=== PATIENT | male | born 1970 | race Two or more races ===

== ENCOUNTER 2018-01-02 21:24 | Emergency (ER) | payer BC, MEDICAID ==
[2018-01-02 22:46] VITALS: BP 138/65
[2018-01-02] MEDS ORDERED: Ketorolac 30 MG/ML SDV IM ONE (23:33)
--- NOTE | 2018-01-02 23:39 | EDM.PDOC ---
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 Did miss one day of work last week No nausea or vomiting with the headache No photophobia, States he is also developing a migraine now sinus/migraine Pain Score (Numeric/FACES): 10 - Related Data Allergies Allergy/AdvReac Type Severity Reaction Status Date / Time No Known Allergies Allergy Verified 01/02/18 22:51 Home Meds: Home Meds Cephalexin 500 mg PO TID #20 capsule 01/02/18 [Rx] metFORMIN HCl [Metformin HCl ER] 500 mg PO BID 01/02/18 [History] traMADol [Ultram] 50 mg PO Q4H PRN #15 tab 01/02/18 [Rx] Past Medical History HEENT History: Reports: Impaired Vision Genitourinary History: Reports: Renal Calculus Neurological History: Reports: Migraines Psychiatric History: Reports: ADD, Depression, Suicidal Ideation Endocrine/Metabolic History: Reports: Diabetes, Type II Dermatologic History: Reports: Eczema - Infectious Disease History Infectious Disease History: Reports: Chicken Pox, Measles - Past Surgical History Musculoskeletal Surgical History: Reports: Other (See Below) Other Musculoskeletal Surgeries/Procedures:: SKIN GRAFT Social & Family History - Tobacco Use Smoking Status *Q: Current Every Day Smoker Years of Tobacco use: 1 Packs/Tins Daily: 0.5 - Caffeine Use Caffeine Use: Reports: Coffee, Energy Drinks - Recreational Drug Use Recreational Drug Use: Yes Drug Use in Last 12 Months: No ED ROS GENERAL - Review of Systems Review Of Systems: See Below Constitutional: Reports: Decreased Appetite. Denies: Fever, Chills HEENT: Reports: Rhinitis, Sinus Problem, Other (Nasal discharge). Denies: Dental Pain, Eye Discharge, Eye Pain, Hearing Loss Respiratory: Reports: No Symptoms Cardiovascular: Reports: No Symptoms GI/Abdominal: Reports: No Symptoms Skin: Reports: No Symptoms Psychiatric: Reports: Other (Sleep disturbance, tearful from the pain) - Physical Exam Exam: See Below Exam Limited By: No Limitations General Appearance: Alert, Anxious, Moderate Distress, Other (Large body habitus , Normal vital signs, cheerful from his discomfort) Eye Exam: Bilateral Eye: EOMI, Normal Inspection Ears: Normal External Exam, Normal Canal, Hearing Grossly Normal, Normal TMs Nose: Nasal Tenderness, Nasal Swelling, Nasal Drainage, Other Throat/Mouth: Normal Inspection (Worse on the right), Normal Lips, Normal Teeth , Normal Gums, Normal Oropharynx, Normal Voice Head Exam: Atraumatic, Sinus Tenderness (Forehead and right maxilla) Neck: Normal Inspection, Non-Tender. No: Limited Range of Motion, Lymphadenopathy (R), Lymphadenopathy (L) Respiratory/Chest: No Respiratory Distress, Lungs Clear Cardiovascular: Normal Peripheral Pulses Psychiatric: Anxious, Tearful Skin Exam: Warm, Intact, Normal Color Course - Vital Signs Last Recorded V/S: Last Vital Signs Temp 37.0 C 01/02/18 23:00 Pulse 68 01/02/18 23:00 Resp 16 01/02/18 23:00 BP 138/65 01/02/18 23:00 Pulse Ox 98 01/02/18 23:00 - Orders/Labs/Meds Orders: Active Orders 24 hr Category Date Time Status Ketorolac [Toradol] Med 01/02/18 23:33 Once 30 mg IM ONETIME ONE Medication Orders Ketorolac Tromethamine (Toradol) 30 mg IM ONETIME ONE Stop: 01/02/18 23:34 Meds: Medications Generic Name Dose Route Start Last Admin Trade Name Linda PRN Reason Stop Dose Admin Ketorolac Tromethamine 30 mg 01/02/18 23:33 Toradol IM 01/02/18 23:34 ONETIME ONE - Re-Assessments/Exams Free Text/Narrative Re-Assessment/Exam: 01/02/18 23:39 47-year-old male with rhinitis nasal congestion and possible sinus infection. Symptoms have been present for about 5 days Drove himself here Toradol 30 mg IM Prescriptions as below Departure - Departure Time of Disposition: 23:39 Disposition: Home, Self-Care 01 Condition: Good Clinical Impression: Sinus headache, Rhinosinusitis - Discharge Information Referrals: Jorge Santana NP [Primary Care Provider] - - My Orders Last 24 Hours: My Active Orders 01/02/18 23:33 Ketorolac [Toradol] 30 mg IM ONETIME ONE - Assessment/Plan Last 24 Hours: My Active Orders 01/02/18 23:33 Ketorolac [Toradol] 30 mg IM ONETIME ONE
== END 2018-01-02 23:54 | disposition home or self-care (01) ==
LOC: JP.ED 21:24
DX: J32.9 Chronic sinusitis, unspecified (principal); F17.210 Nicotine dependence, cigarettes, uncomplicated; E11.9 Type 2 diabetes mellitus without complications; F32.9 Major depressive disorder, single episode, unspecified
CPT/HCPCS: 96374; 99283; J1885

== ENCOUNTER 2018-08-17 19:31 | Emergency (ER) | payer BC, MEDICAID ==
[2018-08-17 19:57] VITALS: BP 128/71
--- NOTE | 2018-08-17 20:18 | EDM.PDOC ---
ED HPI GENERAL MEDICAL PROBLEM - General Chief Complaint: ENT Problem Stated Complaint: SDS 07/10/18-ONGOING ISSUES Time Seen by Provider: 08/17/18 20:00 Source of Information: Reports: Patient History Limitations: Reports: No Limitations - History of Present Illness INITIAL COMMENTS - FREE TEXT/NARRATIVE: 48-year-old male who was had sinus surgery in the past 2 months, was doing well but over the past 2 weeks has had increased pressure in his right sinus, malodorous drainage and more frequent nosebleeds. Today he ran a low-grade fever. He has an appointment with his ENT surgeon on Sunday. Onset: Gradual Associated Symptoms: Reports: No Other Symptoms Right Face/Facial Pain Score (Numeric/FACES): 7 - Related Data Allergies Allergy/AdvReac Type Severity Reaction Status Date / Time No Known Allergies Allergy Verified 08/17/18 20:04 Home Meds: Home Meds metFORMIN HCl [Metformin HCl ER] 500 mg PO BID 01/02/18 [History] Past Medical History HEENT History: Reports: Allergic Rhinitis, Impaired Vision Genitourinary History: Reports: Renal Calculus Neurological History: Reports: Migraines Psychiatric History: Reports: ADD, Depression, Suicidal Ideation Endocrine/Metabolic History: Reports: Diabetes, Type II Dermatologic History: Reports: Eczema - Infectious Disease History Infectious Disease History: Reports: Chicken Pox, Measles - Past Surgical History HEENT Surgical History: Reports: Naso-Sinus Surgery Musculoskeletal Surgical History: Reports: Other (See Below) Other Musculoskeletal Surgeries/Procedures:: SKIN GRAFT Social & Family History - Tobacco Use Smoking Status *Q: Light Tobacco Smoker Years of Tobacco use: 2 Packs/Tins Daily: 0.5 - Caffeine Use Caffeine Use: Reports: Coffee, Energy Drinks - Recreational Drug Use Recreational Drug Use: No ED ROS ENT - Review of Systems Review Of Systems: See Below Constitutional: Reports: Fever HEENT: Reports: Sinus Problem. Denies: Dental Pain Respiratory: Denies: Shortness of Breath, Cough Cardiovascular: Denies: Chest Pain GI/Abdominal: Reports: Nausea (From postnasal drainage). Denies: Vomiting Skin: Reports: No Symptoms ED EXAM, ENT - Physical Exam Exam: See Below Exam Limited By: No Limitations General Appearance: Alert, No Apparent Distress Ears: Normal TMs Nose: Other (Turbinates look dry but there is no obstruction or drainage). No: Septal Perforation Head: Sinus Tenderness (Right maxillary sinus is tender) Respiratory/Chest: No Respiratory Distress, Lungs Clear Course - Vital Signs Last Recorded V/S: Last Vital Signs Temp 97.3 F 08/17/18 20:03 Pulse 108 H 08/17/18 20:03 Resp 16 08/17/18 20:03 BP 128/71 08/17/18 20:03 Pulse Ox 98 08/17/18 20:03 - Re-Assessments/Exams Free Text/Narrative Re-Assessment/Exam: 08/17/18 20:16 Patient has 2 days before his ENT consult, he'll be placed on Augmentin 875 mg twice a day and was given a note for work for today. He should rest, get fluids , and return if worsening despite treatment. Departure - Departure Time of Disposition: 20:42 Disposition: Home, Self-Care 01 Condition: Good Clinical Impression: Sinusitis, acute Qualifiers: Sinusitis location: maxillary Recurrence: recurrent Qualified Code(s): J01.01 - Acute recurrent maxillary sinusitis - Discharge Information Instructions: Sinusitis, Adult, [id number] Referrals: Jorge Santana NP [Primary Care Provider] - Forms: ED Department Discharge Care Plan Goals: Take antibiotic twice daily as prescribed, take with food. Recheck on Sunday as scheduled. Get plenty of fluids and continue sinus treatment as directed by your surgeon.
== END 2018-08-17 20:42 | disposition home or self-care (01) ==
LOC: JP.ED 19:31
DX: J01.01 Acute recurrent maxillary sinusitis (principal); F17.210 Nicotine dependence, cigarettes, uncomplicated; E11.9 Type 2 diabetes mellitus without complications; Z79.84 Long term (current) use of oral hypoglycemic drugs
CPT/HCPCS: 99283

== ENCOUNTER 2018-11-05 21:53 | Emergency (ER) | payer BC ==
--- NOTE | 2018-11-05 22:57 | EDM.PDOC ---
ED HPI GENERAL MEDICAL PROBLEM - General Chief Complaint: General Stated Complaint: ILLNESS Time Seen by Provider: 11/05/18 22:42 Source of Information: Reports: Patient, Family, RN Notes Reviewed History Limitations: Reports: No Limitations - History of Present Illness INITIAL COMMENTS - FREE TEXT/NARRATIVE: 48-year-old gentleman presents to the emergency department today complaint of fever and body aches, he states this is really developed over the last 24 hours he is also complaining of pain in his left knee no trauma, he denies any possible tick exposure however he was laying on the ground when he changed his oil last week, lives in the [facility] Headache Pain Score (Numeric/FACES): 6 - Related Data Allergies Allergy/AdvReac Type Severity Reaction Status Date / Time No Known Allergies Allergy Verified 08/17/18 20:04 Home Meds: Home Meds metFORMIN HCl [Metformin HCl ER] 500 mg PO BID 01/02/18 [History] atorvaSTATin Calcium [Atorvastatin Calcium] 40 mg PO DAILY 11/05/18 [History] Past Medical History HEENT History: Reports: Allergic Rhinitis, Impaired Vision Genitourinary History: Reports: Renal Calculus Neurological History: Reports: Migraines Psychiatric History: Reports: ADD, Depression, Suicidal Ideation Endocrine/Metabolic History: Reports: Diabetes, Type II Dermatologic History: Reports: Eczema - Infectious Disease History Infectious Disease History: Reports: Chicken Pox, Measles - Past Surgical History HEENT Surgical History: Reports: Naso-Sinus Surgery Musculoskeletal Surgical History: Reports: Other (See Below) Other Musculoskeletal Surgeries/Procedures:: SKIN GRAFT Social & Family History - Tobacco Use Smoking Status *Q: Current Every Day Smoker Years of Tobacco use: 2 Packs/Tins Daily: 0.5 Used Tobacco, but Quit: No - Caffeine Use Caffeine Use: Reports: Coffee - Recreational Drug Use Recreational Drug Use: No ED ROS GENERAL - Review of Systems Review Of Systems: See Below Constitutional: Reports: Fever, Chills HEENT: Reports: Throat Pain, Throat Swelling Respiratory: Reports: No Symptoms Cardiovascular: Reports: No Symptoms GI/Abdominal: Reports: No Symptoms Musculoskeletal: Reports: Joint Pain (Left knee), Muscle Pain, Muscle Stiffness Skin: Reports: No Symptoms ED EXAM, GENERAL - Physical Exam Exam: See Below Exam Limited By: No Limitations General Appearance: Alert, WD/WN, No Apparent Distress Eye Exam: Bilateral Eye: Normal Inspection, PERRL Ears: Normal External Exam, Normal Canal, Hearing Grossly Normal, Normal TMs Nose: Normal Inspection, Normal Mucosa, No Blood Throat/Mouth: Normal Inspection, Normal Lips, Normal Teeth, Normal Gums, Normal Oropharynx, Normal Voice, No Airway Compromise Head: Atraumatic, Normocephalic Neck: Normal Inspection, Supple, Non-Tender, Full Range of Motion Respiratory/Chest: No Respiratory Distress, Lungs Clear, Normal Breath Sounds, No Accessory Muscle Use, Chest Non-Tender Cardiovascular: Regular Rate, Rhythm, No Murmur GI/Abdominal: Soft, Non-Tender Back Exam: Normal Inspection, Full Range of Motion. No: CVA Tenderness (R), CVA Tenderness (L) Extremities: Normal Inspection, Normal Range of Motion, Non-Tender, No Pedal Edema Neurological: Alert, Oriented Skin Exam: Warm, Dry Course - Vital Signs Last Recorded V/S: Last Vital Signs Temp 98.9 F 11/05/18 22:33 Pulse 99 11/05/18 23:56 Resp 20 11/05/18 23:56 BP 130/82 11/05/18 23:56 Pulse Ox 96 11/05/18 23:56 - Orders/Labs/Meds Labs: Laboratory Tests 11/05/18 11/05/18 11/05/18 Range/Units 22:53 22:53 22:53 WBC 17.5 H (4.5-11.0) K/uL RBC 5.14 (4.30-5.90) M/uL Hgb 14.6 (12.0-15.0) g/dL Hct 43.3 (40.0-54.0) % MCV 84 (80-98) fL MCH 28 (27-31) pg MCHC 34 (32-36) % Plt Count 230 (150-400) K/uL Neut % (Auto) 77 H (36-66) % Lymph % (Auto) 16 L (24-44) % [place] % (Auto) 5 (2-6) % Eos % (Auto) 3 (2-4) % Baso % (Auto) 0 (0-1) % Sodium 137 L (140-148) mmol/L Potassium 4.1 (3.6-5.2) mmol/L Chloride 99 L (100-108) mmol/L Carbon Dioxide 27 (21-32) mmol/L Anion Gap 15.1 H (5.0-14.0) mmol/L BUN 17 (7-18) mg/dL Creatinine 0.8 (0.8-1.3) mg/dL Est Cr Clr Drug Dosing 129.01 mL/min Estimated GFR (MDRD) > 60 (>60) Glucose 189 H (74-106) mg/dL Lactic Acid 1.7 (0.4-2.0) mmol/L Calcium 9.3 (8.5-10.1) mg/dL Total Bilirubin 0.6 (0.2-1.0) mg/dL AST 22 (15-37) U/L ALT 30 (12-78) U/L Alkaline Phosphatase 128 H (46-116) U/L C-Reactive Protein 1.81 H (0.0-0.3) mg/dL Total Protein 7.1 (6.4-8.2) g/dL Albumin 3.3 L (3.4-5.0) g/dL Globulin 3.8 H (2.3-3.5) g/dL Albumin/Globulin Ratio 0.9 L (1.2-2.2) Departure - Departure Time of Disposition: 00:11 Disposition: Home, Self-Care 01 Condition: Fair Clinical Impression: Chills - Discharge Information Referrals: PCP,None [Primary Care Provider] - Forms: ED Department Discharge Additional Instructions: Recommend take full course of antibiotics use Tylenol or Motrin as needed for fever control please follow-up with your primary care in the next 3-5 days for reevaluation if not better, call or return to the emergency department worsening of symptoms - Assessment/Plan Plan: Assessment Fevers and chills suspicious for tickborne illness WBC elevated at 17.5 consistent leukocytosis lactic acid normal 1.7 and CRP elevated 1.8 Plan Elected to treat empirically doxycycline 100 mg by mouth twice a day 14 days follow-up with primary care 3-5 days if no improvement
[2018-11-05 23:57] VITALS: BP 130/82
== END 2018-11-06 00:25 | disposition home or self-care (01) ==
LOC: JP.ED 21:53
DX: J02.0 Streptococcal pharyngitis (principal); E11.9 Type 2 diabetes mellitus without complications; F32.9 Major depressive disorder, single episode, unspecified; F17.210 Nicotine dependence, cigarettes, uncomplicated; Z79.84 Long term (current) use of oral hypoglycemic drugs; Z79.899 Other long term (current) drug therapy
CPT/HCPCS: 36415; 80053; 83605; 85025; 86140; 87430; 99283

== ENCOUNTER 2019-08-28 15:02 | Emergency (ER) | payer BC, OTHER ==
[2019-08-28] MEDS ORDERED: Ketorolac 30 MG/ML SDV IVPUSH ONE (15:10)
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
[2019-08-28 15:25] VITALS: PULSE 50
[2019-08-28 15:26] VITALS: BP 118/69
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
[2019-08-28] MEDS ORDERED: Cyclobenzaprine 10 MG Tab PO ONE (15:49)
[2019-08-28] MEDS ORDERED: Ketorolac 60 MG/2 ML SDV IM ONE (16:08)
== END 2019-08-28 16:16 | disposition home or self-care (01) ==
LOC: JP.ED 15:02
DX: S39.012A Strain of muscle, fascia and tendon of lower back, initial encounter (principal); E11.9 Type 2 diabetes mellitus without complications; G43.909 Migraine, unspecified, not intractable, without status migrainosus; Z79.84 Long term (current) use of oral hypoglycemic drugs; Z79.899 Other long term (current) drug therapy; V43.52XA Car driver injured in collision with other type car in traffic accident, initial encounter; Y92.410 Unspecified street and highway as the place of occurrence of the external cause
CPT/HCPCS: 72040; 72100; 96372; 99284; A9270; J1885

== ENCOUNTER 2019-11-04 22:33 | Emergency (ER) | payer BC ==
[2019-11-04 22:48] VITALS: BP 134/87; PULSE 86
--- NOTE | 2019-11-04 22:51 | EDM.PDOC ---
ED HPI GENERAL MEDICAL PROBLEM - General Chief Complaint: Lower Extremity Injury/Pain Stated Complaint: R PINKY TOE INJURY Time Seen by Provider: 11/04/19 22:46 Source of Information: Reports: Patient, RN Notes Reviewed History Limitations: Reports: No Limitations - History of Present Illness INITIAL COMMENTS - FREE TEXT/NARRATIVE: jammed toe on a shopping cart Right Toe-Little Pain Score (Numeric/FACES): 9 - Related Data Allergies Allergy/AdvReac Type Severity Reaction Status Date / Time No Known Allergies Allergy Verified 08/28/19 15:19 Home Meds: Home Meds metFORMIN HCl [Metformin HCl ER] 2 tab PO BID 01/02/18 [History] SUMAtriptan [Imitrex] 1 - 2 tab PO ASDIRECTED PRN 03/19/19 [History] Past Medical History HEENT History: Reports: Allergic Rhinitis, Impaired Vision Genitourinary History: Reports: Renal Calculus Neurological History: Reports: Migraines Psychiatric History: Reports: ADD, Depression, Suicidal Ideation Endocrine/Metabolic History: Reports: Diabetes, Type II Dermatologic History: Reports: Eczema - Infectious Disease History Infectious Disease History: Reports: Chicken Pox, Measles - Past Surgical History HEENT Surgical History: Reports: Naso-Sinus Surgery Musculoskeletal Surgical History: Reports: Other (See Below) Other Musculoskeletal Surgeries/Procedures:: SKIN GRAFT Social & Family History - Tobacco Use Smoking Status *Q: Current Every Day Smoker Years of Tobacco use: 4 Packs/Tins Daily: 0.5 - Caffeine Use Caffeine Use: Reports: Coffee Other Caffeine Use: 2 cups per day - Recreational Drug Use Recreational Drug Use: No Review of Systems - Review of Systems Review Of Systems: See Below Constitutional: Reports: No Symptoms Musculoskeletal: Reports: Foot Pain Skin: Reports: Wound ED EXAM, GENERAL - Physical Exam Exam: See Below Free Text/Narrative:: Examination of the right foot he does have edema bruising over the digit #5 on the right foot he does have an open wound that has started to heal portion of the nail was lifted off toe is tender to the touch pedal pulses +2 Exam Limited By: No Limitations General Appearance: Alert, WD/WN, No Apparent Distress Course - Vital Signs Last Recorded V/S: Last Vital Signs Temp 97.3 F 11/04/19 22:46 Pulse 86 11/04/19 22:46 Resp 16 04/28/20 22:46 BP 134/87 11/04/19 22:46 Pulse Ox 99 11/04/19 22:46 - Orders/Labs/Meds Orders: Active Orders 24 hr Category Date Time Status Toes Fifth Digit Rt T9 [CR] Stat Exams 11/04/19 22:48 Taken Departure - Departure Time of Disposition: 23:17 Disposition: Home, Self-Care 01 Condition: Fair Clinical Impression: Toe sprain Qualifiers: Encounter type: initial encounter Qualified Code(s): S93.509A - Unspecified sprain of unspecified toe(s), initial encounter - Discharge Information Referrals: PCP,None [Primary Care Provider] - Forms: ED Department Discharge Additional Instructions: Continue to use the hard soled shoe for comfort, use Tylenol or Motrin as needed for pain control, for breakthrough pain use hydrocodone, please followup with your primary care provider in 3-5 days if not better, please call return to the emergency department with worsening of symptoms. Sepsis Event Note - Evaluation Sepsis Screening Result: No Definite Risk - Focused Exam Vital Signs: Vital Signs Temp Pulse Resp BP Pulse Ox 11/04/19 22:46 97.3 F 86 16 134/87 99 Date Exam was Performed: 11/04/19 Time Exam was Performed: 23:15 - My Orders Last 24 Hours: My Active Orders 11/04/19 22:48 Toes Fifth Digit Rt T9 [CR] Stat - Assessment/Plan Last 24 Hours: My Active Orders 11/04/19 22:48 Toes Fifth Digit Rt T9 [CR] Stat Plan: Assessment Acuity = acute Site and laterality = toe sprain Etiology = secondary to trauma Manifestations = none Location of injury = Home Lab values = toe x-ray I did review films myself I cannot appreciate any acute process, the official read from radiology is pending Plan Prescription for hydrocodone 5/325 1 tab p.o. 3 times daily PRN total #10 provided for pain control placed in a hard soled shoe follow-up primary care 3 to 5 days if not better will contact him if radiology read is different This note was dictated using [employer] recognition software please call with any questions on syntax or grammar.
--- NOTE | 2019-11-05 10:48 | CR ---
Toes Fifth Digit Rt T9 CLINICAL HISTORY: Trauma FINDINGS: There is a nondisplaced fracture through the base of the fifth proximal phalanx. There is no articular surface involvement. IMPRESSION: Nondisplaced fracture base of fifth proximal phalanx
== END 2019-11-04 23:28 | disposition home or self-care (01) ==
LOC: JP.ED 22:33
DX: S93.504A Unspecified sprain of right lesser toe(s), initial encounter (principal); F17.210 Nicotine dependence, cigarettes, uncomplicated; G43.909 Migraine, unspecified, not intractable, without status migrainosus; E11.9 Type 2 diabetes mellitus without complications; Z79.84 Long term (current) use of oral hypoglycemic drugs; Z87.442 Personal history of urinary calculi; W23.0XXA Caught, crushed, jammed, or pinched between moving objects, initial encounter; Z79.899 Other long term (current) drug therapy
CPT/HCPCS: 73660-26-T9; 73660-T9; 99283-25

== ENCOUNTER 2020-03-31 22:18 | Observation (INO) | payer SELFPAY ==
[2020-03-31] MEDS: Sodium Chloride 0.9% 1,000 ML IV SCH (23:28)
[2020-03-31] MEDS ORDERED: Acetaminophen 325 MG Tab PO ONE (23:44)
[2020-03-31] MEDS ORDERED: Sodium Chloride 0.9% 1,000 ML IV SCH ×2 (23:45)
--- NOTE | 2020-03-31 23:45 | EDM.PDOC ---
ED HPI GENERAL MEDICAL PROBLEM - General Chief Complaint: Fever Stated Complaint: FEVER,BACK PAIN Time Seen by Provider: 03/31/20 23:45 Source of Information: Reports: Patient History Limitations: Reports: No Limitations - History of Present Illness INITIAL COMMENTS - FREE TEXT/NARRATIVE: pt had 2 lesions which looked infected and was treated by Jorge Jackson. These are in the gluteal fold and these look like they are resolving and are not tender around the area. Tonight he developed shaking chills and ahigh temp. He was mildly sob. He had a mild sore throat. Onset: Today, Sudden Location: Reports: Chest, Generalized Associated Symptoms: Reports: Other (pt has the resolving lesions in the groin w hich tested positive for type 1 herpes. His syphilis was neg. ) - Related Data Allergies Allergy/AdvReac Type Severity Reaction Status Date / Time No Known Allergies Allergy Verified 08/28/19 15:19 Home Meds: Home Meds metFORMIN HCl [Metformin HCl ER] 2 tab PO BID 01/02/18 [History] SUMAtriptan [Imitrex] 1 - 2 tab PO ASDIRECTED PRN 03/19/19 [History] Sulfamethoxazole/Trimethoprim [Sulfamethoxazole-Tmp Ds Tablet] 1 tab PO BID 03/31/20 [History] Past Medical History HEENT History: Reports: Allergic Rhinitis, Impaired Vision Genitourinary History: Reports: Renal Calculus Neurological History: Reports: Migraines Psychiatric History: Reports: ADD, Depression, Suicidal Ideation Endocrine/Metabolic History: Reports: Diabetes, Type II Dermatologic History: Reports: Eczema - Infectious Disease History Infectious Disease History: Reports: Chicken Pox, Measles - Past Surgical History HEENT Surgical History: Reports: Naso-Sinus Surgery Musculoskeletal Surgical History: Reports: Other (See Below) Other Musculoskeletal Surgeries/Procedures:: SKIN GRAFT Social & Family History - Tobacco Use Smoking Status *Q: Current Every Day Smoker Years of Tobacco use: 3 Packs/Tins Daily: 0.5 - Caffeine Use Caffeine Use: Reports: Coffee Other Caffeine Use: 2 cups per day - Recreational Drug Use Recreational Drug Use: No ED ROS GENERAL - Review of Systems Review Of Systems: See Below Constitutional: Reports: Fever, Chills, Malaise, Weakness HEENT: Reports: Other (mild sore throat. ) Respiratory: Reports: Shortness of Breath, Other (mild symptoms) Cardiovascular: Reports: No Symptoms Endocrine: Reports: No Symptoms GI/Abdominal: Reports: No Symptoms : Reports: No Symptoms Musculoskeletal: Reports: No Symptoms Skin: Reports: Other (lesions in the groin) Neurological: Reports: No Symptoms Psychiatric: Reports: No Symptoms ED EXAM, SEPSIS - Physical Exam Exam: See Below Text/Narrative:: pt arrived with shaking chills. He had a rapid pulse and a temp greater than 101. He had not vomited. He has siome groin lesions and wondered if they were the cause of his fever. These lesions did test positive for herpes. Exam Limited By: No Limitations General Appearance: Alert, Anxious, Mild Distress, Other (pupils are equal and reactuive. ) Ears: Normal TMs Nose: Normal Inspection Throat/Mouth: Normal Inspection Head: Atraumatic Neck: Normal Inspection Respiratory/Chest: No Respiratory Distress Cardiovascular: Regular Rate, Rhythm, Tachycardia GI/Abdominal Exam: Soft, Non-Tender (Male) Exam: Other ( 2 lesion in the left gluteal fold which look like they are resolving. ) Rectal (Males) Exam: Deferred Back: Normal Inspection Extremities: Normal Inspection Neurological: Alert, Oriented Psychiatric: Anxious Course - Vital Signs Last Recorded V/S: Last Vital Signs Temp 38.7 C H 03/31/20 22:25 Pulse 103 H 03/31/20 22:25 Resp 16 03/31/20 22:25 BP 140/80 03/31/20 22:25 Pulse Ox 98 03/31/20 22:25 - Orders/Labs/Meds Orders: Active Orders 24 hr Category Date Time Status Chest 1V Frontal [CR] Stat Exams 03/31/20 23:54 Taken CULTURE BLOOD [BC] Urgent Lab 03/31/20 22:39 Received CULTURE BLOOD [BC] Urgent Lab 03/31/20 23:25 Received CULTURE STREP A CONFIRMATION [RM] Stat Lab 03/31/20 23:44 Results STREP SCRN A RAPID W CULT CONF [] Stat Lab 03/31/20 23:44 Results Sodium Chloride 0.9% [Normal Saline] 1,000 ml Med 03/31/20 23:30 Active IV ASDIRECTED Sodium Chloride 0.9% [Normal Saline] 1,000 ml Med 03/31/20 23:45 Active IV ASDIRECTED Sodium Chloride 0.9% [Normal Saline] 1,000 ml Med 03/31/20 23:45 Active IV ASDIRECTED Blood Culture x2 Reflex Set [OM.PC] Urgent Oth 03/31/20 23:17 Ordered Isolation [COMM] Routine Oth 03/31/20 23:47 Ordered Medication Orders Sodium Chloride (Normal Saline) 1,000 mls @ 999 mls/hr IV ASDIRECTED DANA Last Admin: 04/01/20 00:03 Dose: 999 mls/hr Documented by: [id number] Infusion: 04/01/20 00:03 Dose: 999 mls/hr Documented by: Admin: 03/31/20 23:28 Dose: 999 mls/hr Documented by: HANANE Sodium Chloride (Normal Saline) 1,000 mls @ 999 mls/hr IV ASDIRECTED DANA Sodium Chloride (Normal Saline) 1,000 mls @ 999 mls/hr IV ASDIRECTED DANA Labs: Laboratory Tests 03/31/20 03/31/20 03/31/20 Range/Units 22:30 22:40 22:40 WBC 8.9 (4.5-11.0) K/uL RBC 5.23 (4.30-5.90) M/uL Hgb 14.4 (12.0-15.0) g/dL Hct 45.2 (40.0-54.0) % MCV 86 (80-98) fL MCH 28 (27-31) pg MCHC 32 (32-36) % Plt Count 248 (150-400) K/uL Neut % (Auto) 75 H (36-66) % Lymph % (Auto) 13 L (24-44) % [place] % (Auto) 6 (2-6) % Eos % (Auto) 5 H (2-4) % Baso % (Auto) 0 (0-1) % Sodium 135 L (140-148) mmol/L Potassium 3.9 (3.6-5.2) mmol/L Chloride 101 (100-108) mmol/L Carbon Dioxide 26 (21-32) mmol/L Anion Gap 11.9 (5.0-14.0) mmol/L BUN 15 (7-18) mg/dL Creatinine 1.0 (0.8-1.3) mg/dL Est Cr Clr Drug Dosing 100.98 mL/min Estimated GFR (MDRD) > 60 (>60) Glucose 143 H (74-106) mg/dL Lactic Acid (0.4-2.0) mmol/L Calcium 8.3 L (8.5-10.1) mg/dL Total Bilirubin 0.4 (0.2-1.0) mg/dL AST 33 (15-37) U/L ALT 39 (12-78) U/L Alkaline Phosphatase 115 (46-116) U/L Lactate Dehydrogenase (85-227) U/L C-Reactive Protein 2.87 H (0.0-0.3) mg/dL Total Protein 6.8 (6.4-8.2) g/dL Albumin 3.1 L (3.4-5.0) g/dL Globulin 3.7 H (2.3-3.5) g/dL Albumin/Globulin Ratio 0.8 L (1.2-2.2) Urine Color (YELLOW) Urine Appearance (CLEAR) Urine pH (5.0-8.0) Ur Specific [place] (1.008-1.030) Urine Protein (NEGATIVE) mg/dL Urine Glucose (UA) (NEGATIVE) mg/dL Urine Ketones (NEGATIVE) mg/dL Urine Occult Blood (NEGATIVE) Urine Nitrite (NEGATIVE) Urine Bilirubin (NEGATIVE) Urine Urobilinogen (0.2-1.0) EU/dL Ur Leukocyte Esterase (NEGATIVE) Urine RBC (0-5) Urine WBC (0-5) Ur Epithelial Cells Amorphous Sediment Urine Bacteria Urine Mucus SARS-CoV-2 RNA (LYNDSAY) (NEGATIVE) 03/31/20 03/31/20 03/31/20 Range/Units 23:10 23:19 23:46 WBC (4.5-11.0) K/uL RBC (4.30-5.90) M/uL Hgb (12.0-15.0) g/dL Hct (40.0-54.0) % MCV (80-98) fL MCH (27-31) pg MCHC (32-36) % Plt Count (150-400) K/uL Neut % (Auto) (36-66) % Lymph % (Auto) (24-44) % [place] % (Auto) (2-6) % Eos % (Auto) (2-4) % Baso % (Auto) (0-1) % Sodium (140-148) mmol/L Potassium (3.6-5.2) mmol/L Chloride (100-108) mmol/L Carbon Dioxide (21-32) mmol/L Anion Gap (5.0-14.0) mmol/L BUN (7-18) mg/dL Creatinine (0.8-1.3) mg/dL Est Cr Clr Drug Dosing mL/min Estimated GFR (MDRD) (>60) Glucose (74-106) mg/dL Lactic Acid 1.6 (0.4-2.0) mmol/L Calcium (8.5-10.1) mg/dL Total Bilirubin (0.2-1.0) mg/dL AST (15-37) U/L ALT (12-78) U/L Alkaline Phosphatase (46-116) U/L Lactate Dehydrogenase 186 (85-227) U/L C-Reactive Protein (0.0-0.3) mg/dL Total Protein (6.4-8.2) g/dL Albumin (3.4-5.0) g/dL Globulin (2.3-3.5) g/dL Albumin/Globulin Ratio (1.2-2.2) Urine Color Yellow (YELLOW) Urine Appearance Clear (CLEAR) Urine pH 5.5 (5.0-8.0) Ur Specific [place] >= 1.030 (1.008-1.030) Urine Protein Negative (NEGATIVE) mg/dL Urine Glucose (UA) Negative (NEGATIVE) mg/dL Urine Ketones Negative (NEGATIVE) mg/dL Urine Occult Blood Small H (NEGATIVE) Urine Nitrite Negative (NEGATIVE) Urine Bilirubin Negative (NEGATIVE) Urine Urobilinogen 0.2 (0.2-1.0) EU/dL Ur Leukocyte Esterase Negative (NEGATIVE) Urine RBC 0-5 (0-5) Urine WBC 0-5 (0-5) Ur Epithelial Cells Few Amorphous Sediment Few Urine Bacteria Not seen Urine Mucus Not seen SARS-CoV-2 RNA (LYNDSAY) (NEGATIVE) 03/31/20 Range/Units 23:58 WBC (4.5-11.0) K/uL RBC (4.30-5.90) M/uL Hgb (12.0-15.0) g/dL Hct (40.0-54.0) % MCV (80-98) fL MCH (27-31) pg MCHC (32-36) % Plt Count (150-400) K/uL Neut % (Auto) (36-66) % Lymph % (Auto) (24-44) % [place] % (Auto) (2-6) % Eos % (Auto) (2-4) % Baso % (Auto) (0-1) % Sodium (140-148) mmol/L Potassium (3.6-5.2) mmol/L Chloride (100-108) mmol/L Carbon Dioxide (21-32) mmol/L Anion Gap (5.0-14.0) mmol/L BUN (7-18) mg/dL Creatinine (0.8-1.3) mg/dL Est Cr Clr Drug Dosing mL/min Estimated GFR (MDRD) (>60) Glucose (74-106) mg/dL Lactic Acid (0.4-2.0) mmol/L Calcium (8.5-10.1) mg/dL Total Bilirubin (0.2-1.0) mg/dL AST (15-37) U/L ALT (12-78) U/L Alkaline Phosphatase (46-116) U/L Lactate Dehydrogenase (85-227) U/L C-Reactive Protein (0.0-0.3) mg/dL Total Protein (6.4-8.2) g/dL Albumin (3.4-5.0) g/dL Globulin (2.3-3.5) g/dL Albumin/Globulin Ratio (1.2-2.2) Urine Color (YELLOW) Urine Appearance (CLEAR) Urine pH (5.0-8.0) Ur Specific [place] (1.008-1.030) Urine Protein (NEGATIVE) mg/dL Urine Glucose (UA) (NEGATIVE) mg/dL Urine Ketones (NEGATIVE) mg/dL Urine Occult Blood (NEGATIVE) Urine Nitrite (NEGATIVE) Urine Bilirubin (NEGATIVE) Urine Urobilinogen (0.2-1.0) EU/dL Ur Leukocyte Esterase (NEGATIVE) Urine RBC (0-5) Urine WBC (0-5) Ur Epithelial Cells Amorphous Sediment Urine Bacteria Urine Mucus SARS-CoV-2 RNA (LYNDSAY) Negative (NEGATIVE) Meds: Medications Generic Name Dose Route Start Last Admin Trade Name Freq PRN Reason Stop Dose Admin Sodium Chloride 1,000 mls @ 999 mls/hr 03/31/20 23:30 04/01/20 00:03 Normal Saline IV 999 mls/hr ASDIRECTED DANA Administration Sodium Chloride 1,000 mls @ 999 mls/hr 03/31/20 23:45 Normal Saline IV ASDIRECTED DANA Sodium Chloride 1,000 mls @ 999 mls/hr 03/31/20 23:45 Normal Saline IV ASDIRECTED DANA Discontinued Medications Generic Name Dose Route Start Last Admin Trade Name Linda PRN Reason Stop Dose Admin Acetaminophen 650 mg 03/31/20 23:44 04/01/20 00:00 Tylenol PO 03/31/20 23:45 650 mg NOW ONE Administration - Re-Assessments/Exams Free Text/Narrative Re-Assessment/Exam: 04/01/20 00:43 pt is neg for influ, his urine is clear. He has a neg chest xray, His strept is neg. His wbc is not high. He had a normal ldh. His crp is elevated. 04/01/20 01:21 pt is covid neg. Departure - Departure Time of Disposition: 01:21 Disposition: Admitted As Inpatient 66 Condition: Fair Clinical Impression: Recurrent fever of unknown etiology, Dehydration - Discharge Information Referrals: Jorge Santana PHARMACEUTICAL SERVICE REPRESENTATIVE [Primary Care Provider] - Forms: ED Department Discharge Care Plan Goals: admit for observation and hydration. -- admit to [facility] Sepsis Event Note (ED) - Evaluation Sepsis Screening Result: Possible Sepsis Risk - Focused Exam Vital Signs: Vital Signs Temp Pulse Resp BP Pulse Ox 03/31/20 22:25 38.7 C H 103 H 16 140/80 98 - My Orders Last 24 Hours: My Active Orders 03/31/20 22:39 CULTURE BLOOD [BC] Urgent 03/31/20 23:17 Blood Culture x2 Reflex Set [OM.PC] Urgent 03/31/20 23:25 CULTURE BLOOD [BC] Urgent 03/31/20 23:30 Sodium Chloride 0.9% [Normal Saline] 1,000 ml IV ASDIRECTED 03/31/20 23:44 CULTURE STREP A CONFIRMATION [RM] Stat STREP SCRN A RAPID W CULT CONF [RM] Stat 03/31/20 23:45 Sodium Chloride 0.9% [Normal Saline] 1,000 ml IV ASDIRECTED Sodium Chloride 0.9% [Normal Saline] 1,000 ml IV ASDIRECTED 03/31/20 23:47 Isolation [COMM] Routine 03/31/20 23:54 Chest 1V Frontal [CR] Stat - Assessment/Plan Last 24 Hours: My Active Orders 03/31/20 22:39 CULTURE BLOOD [BC] Urgent 03/31/20 23:17 Blood Culture x2 Reflex Set [OM.PC] Urgent 03/31/20 23:25 CULTURE BLOOD [BC] Urgent 03/31/20 23:30 Sodium Chloride 0.9% [Normal Saline] 1,000 ml IV ASDIRECTED 03/31/20 23:44 CULTURE STREP A CONFIRMATION [RM] Stat STREP SCRN A RAPID W CULT CONF [RM] Stat 03/31/20 23:45 Sodium Chloride 0.9% [Normal Saline] 1,000 ml IV ASDIRECTED Sodium Chloride 0.9% [Normal Saline] 1,000 ml IV ASDIRECTED 03/31/20 23:47 Isolation [COMM] Routine 03/31/20 23:54 Chest 1V Frontal [CR] Stat
[2020-04-01] MEDS: Sodium Chloride 0.9% 1,000 ML IV SCH ×3 (00:03→10:08)
[2020-04-01] MEDS ORDERED: Ketorolac 30 MG/ML SDV IVPUSH ONE (02:21)
--- NOTE | 2020-04-01 02:41 | PCM.HP.2 ---
H&P History of Present Illness - General Date of Service: 03/31/20 Admit Problem/Dx: Admission Diagnosis/Problem Admission Diagnosis/Problem Fever with chills Source of Information: Patient, Provider, RN History Limitations: Reports: No Limitations - History of Present Illness Initial Comments - Free Text/Narative: chief complaint: fever and chills since 11 am. Jair reports currently being treated for skin infection in groin with Septra. These are in the gluteal fold and are resolving and are not tender around the area. Tonight he developed shaking chills and fever. He was mildly sob. He had a mild sore throat. 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 His syphilis was neg. ) Onset of Symptoms: Reports: Sudden Symptom Onset Date: 03/31/20 Symptom Onset Time: 11:00 Duration of Symptoms: Reports: Hour(s):, Getting Worse Location: Reports: Generalized Severity: Moderate Improves with: Reports: None Worsens with: Reports: None Associated Symptoms: Reports: Fever/Chills, Headaches, Loss of Appetite, Shortness of Breath, Weakness - Related Data Allergies/Adverse Reactions: Allergies Allergy/AdvReac Type Severity Reaction Status Date / Time No Known Allergies Allergy Verified 08/28/19 15:19 Home Medications: Home Meds metFORMIN HCl [Metformin HCl ER] 2 tab PO BID 01/02/18 [History] SUMAtriptan [Imitrex] 1 - 2 tab PO ASDIRECTED PRN 03/19/19 [History] Sulfamethoxazole/Trimethoprim [Sulfamethoxazole-Tmp Ds Tablet] 1 tab PO BID 03/31/20 [History] Past Medical History HEENT History: Reports: Allergic Rhinitis, Impaired Vision Genitourinary History: Reports: Renal Calculus Neurological History: Reports: Migraines Psychiatric History: Reports: ADD, Depression, Suicidal Ideation Endocrine/Metabolic History: Reports: Diabetes, Type II Dermatologic History: Reports: Eczema - Infectious Disease History Infectious Disease History: Reports: Chicken Pox, Measles - Past Surgical History HEENT Surgical History: Reports: Naso-Sinus Surgery Musculoskeletal Surgical History: Reports: Other (See Below) Other Musculoskeletal Surgeries/Procedures:: SKIN GRAFT Social & Family History - Tobacco Use Smoking Status *Q: Current Every Day Smoker Years of Tobacco use: 3 Packs/Tins Daily: 0.5 - Caffeine Use Caffeine Use: Reports: Coffee Other Caffeine Use: 2 cups per day - Recreational Drug Use Recreational Drug Use: No - Living Situation & Occupation Living situation: Reports: with Significant Other, with Family (lives with S.O. and 3 children- all healthy.) H&P Review of Systems - Review of Systems: Review Of Systems: See Below General: Reports: Fever, Chills, Weakness, Fatigue, Decreased Appetite HEENT: Reports: Sore Throat Pulmonary: Reports: Shortness of Breath Cardiovascular: Reports: No Symptoms Gastrointestinal: Reports: No Symptoms Genitourinary: Reports: No Symptoms Musculoskeletal: Reports: Back Pain (low back pain-denies any injury), Muscle Pain (report generalized muscle pain) Skin: Reports: Lesions (left groin single lesion noted for a few weeks- reports this is getting better.) Psychiatric: Reports: No Symptoms Neurological: Reports: Headache, Weakness Hematologic/Lymphatic: Reports: No Symptoms Immunologic: Reports: No Symptoms Exam - Exam Exam: See Below - Vital Signs Vital Signs: Last Vital Signs Temp 37.4 C 04/01/20 01:09 Pulse 103 H 03/31/20 22:25 Resp 16 03/31/20 22:25 BP 140/80 03/31/20 22:25 Pulse Ox 98 03/31/20 22:25 Weight: 106.3 kg - Exam Quality Assessment: DVT Prophylaxis General: Alert, Oriented, Cooperative, Mild Distress, Other (neat and well groomed, pleasant.) HEENT: PERRLA, Conjunctiva Clear, EACs Clear, EOMI, Hearing Intact, Mucosa Moist & [place] Neck: Supple, Trachea Midline Lungs: Clear to Auscultation, Normal Respiratory Effort Cardiovascular: Regular Rate, Regular Rhythm, Normal S1, Normal S2 GI/Abdominal Exam: Normal Bowel Sounds, Soft, Non-Tender, No Distention, Other (obese abdomen) (Male) Exam: Other (left groin - 2 cm circular raised lesion no discharge, pain ) Back Exam: Normal Inspection, Full Range of Motion, Muscle Spasm (low back) Extremities: Normal Inspection, Normal Range of Motion, Non-Tender, No Pedal Edema, Normal Capillary Refill Peripheral Pulses: 2+: Radial (L), Radial (R), Dorsalis Pedis (L), Dorsalis Pedis (R) Skin: Warm, Dry, Intact, Other (2 cm circular raised lesion in left groin fold. ) Neurological: Cranial Nerves Intact, Reflexes Equal Bilateral Neuro Extensive - Mental Status: Alert, Oriented x3, Normal Mood/Affect, Normal Cognition Neuro Extensive - Motor, Sensory, Reflexes: CN II-XII Intact, Normal Gait, No rmal Reflexes Psychiatric: Alert, Normal Affect, Normal Mood - Patient Data Lab Results Last 24 hrs: Laboratory Results - last 24 hr 03/31/20 03/31/20 03/31/20 Range/Units 22:30 22:40 22:40 WBC 8.9 (4.5-11.0) K/uL RBC 5.23 (4.30-5.90) M/uL Hgb 14.4 (12.0-15.0) g/dL Hct 45.2 (40.0-54.0) % MCV 86 (80-98) fL MCH 28 (27-31) pg MCHC 32 (32-36) % Plt Count 248 (150-400) K/uL Neut % (Auto) 75 H (36-66) % Lymph % (Auto) 13 L (24-44) % [place] % (Auto) 6 (2-6) % Eos % (Auto) 5 H (2-4) % Baso % (Auto) 0 (0-1) % Sodium 135 L (140-148) mmol/L Potassium 3.9 (3.6-5.2) mmol/L Chloride 101 (100-108) mmol/L Carbon Dioxide 26 (21-32) mmol/L Anion Gap 11.9 (5.0-14.0) mmol/L BUN 15 (7-18) mg/dL Creatinine 1.0 (0.8-1.3) mg/dL Est Cr Clr Drug Dosing 100.98 mL/min Estimated GFR (MDRD) > 60 (>60) Glucose 143 H (74-106) mg/dL Lactic Acid (0.4-2.0) mmol/L Calcium 8.3 L (8.5-10.1) mg/dL Total Bilirubin 0.4 (0.2-1.0) mg/dL AST 33 (15-37) U/L ALT 39 (12-78) U/L Alkaline Phosphatase 115 (46-116) U/L Lactate Dehydrogenase (85-227) U/L C-Reactive Protein 2.87 H (0.0-0.3) mg/dL Total Protein 6.8 (6.4-8.2) g/dL Albumin 3.1 L (3.4-5.0) g/dL Globulin 3.7 H (2.3-3.5) g/dL Albumin/Globulin Ratio 0.8 L (1.2-2.2) Urine Color (YELLOW) Urine Appearance (CLEAR) Urine pH (5.0-8.0) Ur Specific [place] (1.008-1.030) Urine Protein (NEGATIVE) mg/dL Urine Glucose (UA) (NEGATIVE) mg/dL Urine Ketones (NEGATIVE) mg/dL Urine Occult Blood (NEGATIVE) Urine Nitrite (NEGATIVE) Urine Bilirubin (NEGATIVE) Urine Urobilinogen (0.2-1.0) EU/dL Ur Leukocyte Esterase (NEGATIVE) Urine RBC (0-5) Urine WBC (0-5) Ur Epithelial Cells Amorphous Sediment Urine Bacteria Urine Mucus Urine Opiates Screen (NEGATIVE) Ur Oxycodone Screen (NEGATIVE) Urine Methadone Screen (NEGATIVE) Ur Propoxyphene Screen (NEGATIVE) Ur Barbiturates Screen (NEGATIVE) Ur Tricyclics Screen (NEGATIVE) Ur Phencyclidine Scrn (NEGATIVE) Ur Amphetamine Screen (NEGATIVE) U Methamphetamines Scrn (NEGATIVE) Urine MDMA Screen (NEGATIVE) U Benzodiazepines Scrn (NEGATIVE) U Cocaine Metab Screen (NEGATIVE) U Marijuana (THC) Screen (NEGATIVE) SARS-CoV-2 RNA (LYNDSAY) (NEGATIVE) 03/31/20 03/31/20 03/31/20 Range/Units 23:10 23:19 23:46 WBC (4.5-11.0) K/uL RBC (4.30-5.90) M/uL Hgb (12.0-15.0) g/dL Hct (40.0-54.0) % MCV (80-98) fL MCH (27-31) pg MCHC (32-36) % Plt Count (150-400) K/uL Neut % (Auto) (36-66) % Lymph % (Auto) (24-44) % Walton % (Auto) (2-6) % Eos % (Auto) (2-4) % Baso % (Auto) (0-1) % Sodium (140-148) mmol/L Potassium (3.6-5.2) mmol/L Chloride (100-108) mmol/L Carbon Dioxide (21-32) mmol/L Anion Gap (5.0-14.0) mmol/L BUN (7-18) mg/dL Creatinine (0.8-1.3) mg/dL Est Cr Clr Drug Dosing mL/min Estimated GFR (MDRD) (>60) Glucose (74-106) mg/dL Lactic Acid 1.6 (0.4-2.0) mmol/L Calcium (8.5-10.1) mg/dL Total Bilirubin (0.2-1.0) mg/dL AST (15-37) U/L ALT (12-78) U/L Alkaline Phosphatase (46-116) U/L Lactate Dehydrogenase 186 (85-227) U/L C-Reactive Protein (0.0-0.3) mg/dL Total Protein (6.4-8.2) g/dL Albumin (3.4-5.0) g/dL Globulin (2.3-3.5) g/dL Albumin/Globulin Ratio (1.2-2.2) Urine Color Yellow (YELLOW) Urine Appearance Clear (CLEAR) Urine pH 5.5 (5.0-8.0) Ur Specific [place] >= 1.030 (1.008-1.030) Urine Protein Negative (NEGATIVE) mg/dL Urine Glucose (UA) Negative (NEGATIVE) mg/dL Urine Ketones Negative (NEGATIVE) mg/dL Urine Occult Blood Small H (NEGATIVE) Urine Nitrite Negative (NEGATIVE) Urine Bilirubin Negative (NEGATIVE) Urine Urobilinogen 0.2 (0.2-1.0) EU/dL Ur Leukocyte Esterase Negative (NEGATIVE) Urine RBC 0-5 (0-5) Urine WBC 0-5 (0-5) Ur Epithelial Cells Few Amorphous Sediment Few Urine Bacteria Not seen Urine Mucus Not seen Urine Opiates Screen (NEGATIVE) Ur Oxycodone Screen (NEGATIVE) Urine Methadone Screen (NEGATIVE) Ur Propoxyphene Screen (NEGATIVE) Ur Barbiturates Screen (NEGATIVE) Ur Tricyclics Screen (NEGATIVE) Ur Phencyclidine Scrn (NEGATIVE) Ur Amphetamine Screen (NEGATIVE) U Methamphetamines Scrn (NEGATIVE) Urine MDMA Screen (NEGATIVE) U Benzodiazepines Scrn (NEGATIVE) U Cocaine Metab Screen (NEGATIVE) U Marijuana (THC) Screen (NEGATIVE) SARS-CoV-2 RNA (LYNDSAY) (NEGATIVE) 03/31/20 04/01/20 Range/Units 23:58 02:04 WBC (4.5-11.0) K/uL RBC (4.30-5.90) M/uL Hgb (12.0-15.0) g/dL Hct (40.0-54.0) % MCV (80-98) fL MCH (27-31) pg MCHC (32-36) % Plt Count (150-400) K/uL Neut % (Auto) (36-66) % Lymph % (Auto) (24-44) % [place] % (Auto) (2-6) % Eos % (Auto) (2-4) % Baso % (Auto) (0-1) % Sodium (140-148) mmol/L Potassium (3.6-5.2) mmol/L Chloride (100-108) mmol/L Carbon Dioxide (21-32) mmol/L Anion Gap (5.0-14.0) mmol/L BUN (7-18) mg/dL Creatinine (0.8-1.3) mg/dL Est Cr Clr Drug Dosing mL/min Estimated GFR (MDRD) (>60) Glucose (74-106) mg/dL Lactic Acid (0.4-2.0) mmol/L Calcium (8.5-10.1) mg/dL Total Bilirubin (0.2-1.0) mg/dL AST (15-37) U/L ALT (12-78) U/L Alkaline Phosphatase (46-116) U/L Lactate Dehydrogenase (85-227) U/L C-Reactive Protein (0.0-0.3) mg/dL Total Protein (6.4-8.2) g/dL Albumin (3.4-5.0) g/dL Globulin (2.3-3.5) g/dL Albumin/Globulin Ratio (1.2-2.2) Urine Color (YELLOW) Urine Appearance (CLEAR) Urine pH (5.0-8.0) Ur Specific [place] (1.008-1.030) Urine Protein (NEGATIVE) mg/dL Urine Glucose (UA) (NEGATIVE) mg/dL Urine Ketones (NEGATIVE) mg/dL Urine Occult Blood (NEGATIVE) Urine Nitrite (NEGATIVE) Urine Bilirubin (NEGATIVE) Urine Urobilinogen (0.2-1.0) EU/dL Ur Leukocyte Esterase (NEGATIVE) Urine RBC (0-5) Urine WBC (0-5) Ur Epithelial Cells Amorphous Sediment Urine Bacteria Urine Mucus Urine Opiates Screen Negative (NEGATIVE) Ur Oxycodone Screen Negative (NEGATIVE) Urine Methadone Screen Negative (NEGATIVE) Ur Propoxyphene Screen Negative (NEGATIVE) Ur Barbiturates Screen Negative (NEGATIVE) Ur Tricyclics Screen Negative (NEGATIVE) Ur Phencyclidine Scrn Negative (NEGATIVE) Ur Amphetamine Screen Negative (NEGATIVE) U Methamphetamines Scrn Negative (NEGATIVE) Urine MDMA Screen Negative (NEGATIVE) U Benzodiazepines Scrn Presumptive positive H (NEGATIVE) U Cocaine Metab Screen Negative (NEGATIVE) U Marijuana (THC) Screen Negative (NEGATIVE) SARS-CoV-2 RNA (LYNDSAY) Negative (NEGATIVE) Result Diagrams: 03/31/20 22:30 03/31/20 22:40 Julio Results Last 24 hrs: Microbiology 04/01/20 00:26 Influenza Type A Antigen Screen - Final Nasal Aspirate, Left NEGATIVE INFLUENZA A VIRUS AG REFERENCE RANGE: NEGATIVE Influenza Type B Antigen Screen - Final NEGATIVE INFLUENZA B VIRUS AG REFERENCE RANGE: NEGATIVE 03/31/20 23:44 Group A Streptococcus Rapid Screen - Final Throat NEGATIVE STREP A SCREEN REFERENCE RANGE: NEGATIVE Sepsis Event Note - Evaluation Sepsis Screening Result: Possible Sepsis Risk - Focused Exam Vital Signs: Vital Signs Temp Pulse Resp BP Pulse Ox 04/01/20 01:09 37.4 C 03/31/20 22:25 38.7 C H 103 H 16 140/80 98 - Problem List (1) Fever of undetermined origin Status: Acute Priority: High Current Visit: Yes (2) Dehydration SNOMED Code(s): 51217483 ICD Code: E86.0 - DEHYDRATION Status: Acute Priority: High Current Visit: Yes (3) Diabetes mellitus type 2 in obese SNOMED Code(s): 04089471 ICD Code: E11.69 - TYPE 2 DIABETES MELLITUS WITH OTHER SPECIFIED COMPLICATION; E66.9 - OBESITY, UNSPECIFIED Status: Acute Priority: Low Cu rrent Visit: Yes (4) Skin lesion SNOMED Code(s): 88928475 ICD Code: L98.9 - DISORDER OF THE SKIN AND SUBCUTANEOUS TISSUE, UNSPECIFIED Status: Acute Priority: Low Current Visit: Yes Problem List Initiated/Reviewed/Updated: Yes Orders Last 24hrs: Active Orders 24 hr Category Date Time Status Patient Status Manage Transfer [TRANSFER] Routine ADT 04/01/20 02:23 Ordered Chest 1V Frontal [CR] Stat Exams 03/31/20 23:54 Taken CULTURE BLOOD [BC] Urgent Lab 03/31/20 22:39 Received CULTURE BLOOD [BC] Urgent Lab 03/31/20 23:25 Received CULTURE STREP A CONFIRMATION [RM] Stat Lab 03/31/20 23:44 Results HUMAN GRANULOCYTIC ADY-HGE Stat Lab 04/01/20 01:39 Received LYME, TOTAL AB TEST/REFLEX Stat Lab 04/01/20 01:39 Received STREP SCRN A RAPID W CULT CONF [RM] Stat Lab 03/31/20 23:44 Results Sodium Chloride 0.9% [Normal Saline] 1,000 ml Med 03/31/20 23:30 Active IV ASDIRECTED Sodium Chloride 0.9% [Normal Saline] 1,000 ml Med 03/31/20 23:45 Active IV ASDIRECTED Sodium Chloride 0.9% [Normal Saline] 1,000 ml Med 03/31/20 23:45 Active IV ASDIRECTED Blood Culture x2 Reflex Set [OM.PC] Urgent Oth 03/31/20 23:17 Ordered Isolation [COMM] Routine Oth 03/31/20 23:47 Ordered Resuscitation Status Routine Resus Stat 04/01/20 02:25 Ordered Medication Orders Sodium Chloride (Normal Saline) 1,000 mls @ 999 mls/hr IV ASDIRECTED [facility] Last Admin: 04/01/20 00:03 Dose: 999 mls/hr Documented by: [id number] Infusion: 04/01/20 00:03 Dose: 999 mls/hr Documented by: [id number] Admin: 03/31/20 23:28 Dose: 999 mls/hr Documented by: [id number] Sodium Chloride (Normal Saline) 1,000 mls @ 999 mls/hr IV ASDIRECTED DANA Sodium Chloride (Normal Saline) 1,000 mls @ 999 mls/hr IV ASDIRECTED DANA Assessment/Plan Comment:: ASSESSMENT AND PLAN OF CARE. FEVER OF UNKNOWN ORIGIN This is a 50 year old male who present to the ER with SO for continue fever and chills since 11 am. ER Course= CBC, CMP,rapid strep, Influenza A,B and Covid 19 negative. chest x- ray negative. blood cultures pending. Meds -Given 3 liters of IV Normal Saline, IV Toradol 30 mg once for headache and body aches. plan will admit observation for IV fluids and monitoring. Fever with unknown etiology, dehydration - IV fluids for hydration Normal Saline at 125ml/hr -Medication for pain and nausea -Protonix 40 mg IV daily -blood cultures x 2 pending Diabetes type 2 -monitor blood glucose before meal and at bedtime -hold Metformin Skin lesion- currently being treated with Septra -continue Septra DS one po bid MAINTENANCE ISSUES -DVT Prophylaxis Lovenox 40 mg subcut daily -GI prophylaxis- Protonix as above -Bansal catheter not indicated -Nutrition Consistent carb -Nicotine dependence decline patch or gum- reports smokes half a pack per day CODE STATUS FULL ADMISSION This patient will be admitted to observation status, expect no more than one night hospital stay for evaluation and management of problems outline above. DISPOSITION anticipate discharge to home after the hospital stay PRIMARY CARE PROVIDER Jorge Jackson NP., [place], [place]. HOSPITALIST Dr. Grimes - Mortality Measure Prognosis:: Good
[2020-04-01] MEDS ORDERED: Morphine 2 MG/ML SYRINGE IVPUSH PRN (02:59)
[2020-04-01] MEDS ORDERED: Docusate Sodium 100 MG Cap PO PRN (02:59)
[2020-04-01] MEDS ORDERED: Pantoprazole 40 MG Vial IV ONE (02:59)
[2020-04-01] MEDS ORDERED: Ketorolac 30 MG/ML SDV IVPUSH PRN (02:59)
[2020-04-01] MEDS ORDERED: Ondansetron 4 MG Tab.DIS PO PRN (02:59)
[2020-04-01] MEDS ORDERED: Albuterol 0.083% 2.5 MG/3 ML Neb Soln NEB PRN (02:59)
[2020-04-01] MEDS ORDERED: Albuterol/Ipratropium 3.0-0.5 MG/3 ML Neb Soln NEB PRN (02:59)
[2020-04-01] MEDS ORDERED: Acetaminophen 325 MG Tab PO PRN (02:59)
[2020-04-01] MEDS ORDERED: LORazepam 2 MG/ML SDV IV PRN (02:59)
[2020-04-01] MEDS: Acetaminophen/HYDROcodone 325-5 MG Tab PO PRN ×2 (08:04→12:23)
--- NOTE | 2020-04-01 09:25 | CR ---
CHEST: AP 04/01/2020 at 12:10 AM CLINICAL HISTORY:Fever COMPARISON:None FINDINGS: The heart size, pulmonary vascularity and hilar structures are normal. No infiltrate effusion or pneumothorax is seen. IMPRESSION: No acute cardiopulmonary process.
[2020-04-01] MEDS: Sulfamethoxazole/Trimethoprim 800-160 MG Tab PO SCH ×2 (10:00→20:31)
[2020-04-01] MEDS: Enoxaparin 40 MG/0.4 ML Syringe SUBCUT SCH (10:00)
--- NOTE | 2020-04-01 12:25 | PCM.PN ---
- General Info Date of Service: 04/01/20 Subjective Update: No acute events overnight following admission. He feels a little better but still has a moderate headache and diffuse muscle aches. Some nausea. Feels very tired. Temperature is better this morning. Laboratory studies are stable. Cultures negative so far. Functional Status: Reports: Pain Controlled - Review of Systems General: Reports: Fever HEENT: Reports: Headaches Musculoskeletal: Reports: Back Pain, Other (myalgias) - Patient Data Vitals - Most Recent: Last Vital Signs Temp 36.3 C 04/01/20 10:58 Pulse 56 L 04/01/20 10:58 Resp 18 04/01/20 10:58 BP 103/57 L 04/01/20 10:58 Pulse Ox 97 04/01/20 10:58 Weight - Most Recent: 106.3 kg I&O - Last 24 Hours: Intake & Output 03/31/20 04/01/20 04/01/20 22:59 06:59 14:59 Intake Total 268 841 Balance 268 841 Lab Results Last 24 Hours: Laboratory Results - last 24 hr 03/31/20 03/31/20 03/31/20 Range/Units 22:30 22:40 22:40 WBC 8.9 (4.5-11.0) K/uL RBC 5.23 (4.30-5.90) M/uL Hgb 14.4 (12.0-15.0) g/dL Hct 45.2 (40.0-54.0) % MCV 86 (80-98) fL MCH 28 (27-31) pg MCHC 32 (32-36) % Plt Count 248 (150-400) K/uL Neut % (Auto) 75 H (36-66) % Lymph % (Auto) 13 L (24-44) % Faulk % (Auto) 6 (2-6) % Eos % (Auto) 5 H (2-4) % Baso % (Auto) 0 (0-1) % Sodium 135 L (140-148) mmol/L Potassium 3.9 (3.6-5.2) mmol/L Chloride 101 (100-108) mmol/L Carbon Dioxide 26 (21-32) mmol/L Anion Gap 11.9 (5.0-14.0) mmol/L BUN 15 (7-18) mg/dL Creatinine 1.0 (0.8-1.3) mg/dL Est Cr Clr Drug Dosing 100.98 mL/min Estimated GFR (MDRD) > 60 (>60) Glucose 143 H (74-106) mg/dL POC Glucose (74-106) MG/DL Lactic Acid (0.4-2.0) mmol/L Calcium 8.3 L (8.5-10.1) mg/dL Total Bilirubin 0.4 (0.2-1.0) mg/dL AST 33 (15-37) U/L ALT 39 (12-78) U/L Alkaline Phosphatase 115 (46-116) U/L Lactate Dehydrogenase (85-227) U/L C-Reactive Protein 2.87 H (0.0-0.3) mg/dL Total Protein 6.8 (6.4-8.2) g/dL Albumin 3.1 L (3.4-5.0) g/dL Globulin 3.7 H (2.3-3.5) g/dL Albumin/Globulin Ratio 0.8 L (1.2-2.2) Urine Color (YELLOW) Urine Appearance (CLEAR) Urine pH (5.0-8.0) Ur Specific [place] (1.008-1.030) Urine Protein (NEGATIVE) mg/dL Urine Glucose (UA) (NEGATIVE) mg/dL Urine Ketones (NEGATIVE) mg/dL Urine Occult Blood (NEGATIVE) Urine Nitrite (NEGATIVE) Urine Bilirubin (NEGATIVE) Urine Urobilinogen (0.2-1.0) EU/dL Ur Leukocyte Esterase (NEGATIVE) Urine RBC (0-5) Urine WBC (0-5) Ur Epithelial Cells Amorphous Sediment Urine Bacteria Urine Mucus Urine Opiates Screen (NEGATIVE) Ur Oxycodone Screen (NEGATIVE) Urine Methadone Screen (NEGATIVE) Ur Propoxyphene Screen (NEGATIVE) Ur Barbiturates Screen (NEGATIVE) Ur Tricyclics Screen (NEGATIVE) Ur Phencyclidine Scrn (NEGATIVE) Ur Amphetamine Screen (NEGATIVE) U Methamphetamines Scrn (NEGATIVE) Urine MDMA Screen (NEGATIVE) U Benzodiazepines Scrn (NEGATIVE) U Cocaine Metab Screen (NEGATIVE) U Marijuana (THC) Screen (NEGATIVE) SARS-CoV-2 RNA (LYNDSAY) (NEGATIVE) 03/31/20 03/31/20 03/31/20 Range/Units 23:10 23:19 23:46 WBC (4.5-11.0) K/uL RBC (4.30-5.90) M/uL Hgb (12.0-15.0) g/dL Hct (40.0-54.0) % MCV (80-98) fL MCH (27-31) pg MCHC (32-36) % Plt Count (150-400) K/uL Neut % (Auto) (36-66) % Lymph % (Auto) (24-44) % Faulk % (Auto) (2-6) % Eos % (Auto) (2-4) % Baso % (Auto) (0-1) % Sodium (140-148) mmol/L Potassium (3.6-5.2) mmol/L Chloride (100-108) mmol/L Carbon Dioxide (21-32) mmol/L Anion Gap (5.0-14.0) mmol/L BUN (7-18) mg/dL Creatinine (0.8-1.3) mg/dL Est Cr Clr Drug Dosing mL/min Estimated GFR (MDRD) (>60) Glucose (74-106) mg/dL POC Glucose (74-106) MG/DL Lactic Acid 1.6 (0.4-2.0) mmol/L Calcium (8.5-10.1) mg/dL Total Bilirubin (0.2-1.0) mg/dL AST (15-37) U/L ALT (12-78) U/L Alkaline Phosphatase (46-116) U/L Lactate Dehydrogenase 186 (85-227) U/L C-Reactive Protein (0.0-0.3) mg/dL Total Protein (6.4-8.2) g/dL Albumin (3.4-5.0) g/dL Globulin (2.3-3.5) g/dL Albumin/Globulin Ratio (1.2-2.2) Urine Color Yellow (YELLOW) Urine Appearance Clear (CLEAR) Urine pH 5.5 (5.0-8.0) Ur Specific [place] >= 1.030 (1.008-1.030) Urine Protein Negative (NEGATIVE) mg/dL Urine Glucose (UA) Negative (NEGATIVE) mg/dL Urine Ketones Negative (NEGATIVE) mg/dL Urine Occult Blood Small H (NEGATIVE) Urine Nitrite Negative (NEGATIVE) Urine Bilirubin Negative (NEGATIVE) Urine Urobilinogen 0.2 (0.2-1.0) EU/dL Ur Leukocyte Esterase Negative (NEGATIVE) Urine RBC 0-5 (0-5) Urine WBC 0-5 (0-5) Ur Epithelial Cells Few Amorphous Sediment Few Urine Bacteria Not seen Urine Mucus Not seen Urine Opiates Screen (NEGATIVE) Ur Oxycodone Screen (NEGATIVE) Urine Methadone Screen (NEGATIVE) Ur Propoxyphene Screen (NEGATIVE) Ur Barbiturates Screen (NEGATIVE) Ur Tricyclics Screen (NEGATIVE) Ur Phencyclidine Scrn (NEGATIVE) Ur Amphetamine Screen (NEGATIVE) U Methamphetamines Scrn (NEGATIVE) Urine MDMA Screen (NEGATIVE) U Benzodiazepines Scrn (NEGATIVE) U Cocaine Metab Screen (NEGATIVE) U Marijuana (THC) Screen (NEGATIVE) SARS-CoV-2 RNA (LYNDSAY) (NEGATIVE) 03/31/20 04/01/20 04/01/20 Range/Units 23:58 02:04 07:29 WBC (4.5-11.0) K/uL RBC (4.30-5.90) M/uL Hgb (12.0-15.0) g/dL Hct (40.0-54.0) % MCV (80-98) fL MCH (27-31) pg MCHC (32-36) % Plt Count (150-400) K/uL Neut % (Auto) (36-66) % Lymph % (Auto) (24-44) % Faulk % (Auto) (2-6) % Eos % (Auto) (2-4) % Baso % (Auto) (0-1) % Sodium (140-148) mmol/L Potassium (3.6-5.2) mmol/L Chloride (100-108) mmol/L Carbon Dioxide (21-32) mmol/L Anion Gap (5.0-14.0) mmol/L BUN (7-18) mg/dL Creatinine (0.8-1.3) mg/dL Est Cr Clr Drug Dosing mL/min Estimated GFR (MDRD) (>60) Glucose (74-106) mg/dL POC Glucose 107 H (74-106) MG/DL Lactic Acid (0.4-2.0) mmol/L Calcium (8.5-10.1) mg/dL Total Bilirubin (0.2-1.0) mg/dL AST (15-37) U/L ALT (12-78) U/L Alkaline Phosphatase (46-116) U/L Lactate Dehydrogenase (85-227) U/L C-Reactive Protein (0.0-0.3) mg/dL Total Protein (6.4-8.2) g/dL Albumin (3.4-5.0) g/dL Globulin (2.3-3.5) g/dL Albumin/Globulin Ratio (1.2-2.2) Urine Color (YELLOW) Urine Appearance (CLEAR) Urine pH (5.0-8.0) Ur Specific [place] (1.008-1.030) Urine Protein (NEGATIVE) mg/dL Urine Glucose (UA) (NEGATIVE) mg/dL Urine Ketones (NEGATIVE) mg/dL Urine Occult Blood (NEGATIVE) Urine Nitrite (NEGATIVE) Urine Bilirubin (NEGATIVE) Urine Urobilinogen (0.2-1.0) EU/dL Ur Leukocyte Esterase (NEGATIVE) Urine RBC (0-5) Urine WBC (0-5) Ur Epithelial Cells Amorphous Sediment Urine Bacteria Urine Mucus Urine Opiates Screen Negative (NEGATIVE) Ur Oxycodone Screen Negative (NEGATIVE) Urine Methadone Screen Negative (NEGATIVE) Ur Propoxyphene Screen Negative (NEGATIVE) Ur Barbiturates Screen Negative (NEGATIVE) Ur Tricyclics Screen Negative (NEGATIVE) Ur Phencyclidine Scrn Negative (NEGATIVE) Ur Amphetamine Screen Negative (NEGATIVE) U Methamphetamines Scrn Negative (NEGATIVE) Urine MDMA Screen Negative (NEGATIVE) U Benzodiazepines Scrn Presumptive positive H (NEGATIVE) U Cocaine Metab Screen Negative (NEGATIVE) U Marijuana (THC) Screen Negative (NEGATIVE) SARS-CoV-2 RNA (LYNDSAY) Negative (NEGATIVE) 04/01/20 Range/Units 11:24 WBC (4.5-11.0) K/uL RBC (4.30-5.90) M/uL Hgb (12.0-15.0) g/dL Hct (40.0-54.0) % MCV (80-98) fL MCH (27-31) pg MCHC (32-36) % Plt Count (150-400) K/uL Neut % (Auto) (36-66) % Lymph % (Auto) (24-44) % Faulk % (Auto) (2-6) % Eos % (Auto) (2-4) % Baso % (Auto) (0-1) % Sodium (140-148) mmol/L Potassium (3.6-5.2) mmol/L Chloride (100-108) mmol/L Carbon Dioxide (21-32) mmol/L Anion Gap (5.0-14.0) mmol/L BUN (7-18) mg/dL Creatinine (0.8-1.3) mg/dL Est Cr Clr Drug Dosing mL/min Estimated GFR (MDRD) (>60) Glucose (74-106) mg/dL POC Glucose 149 H (74-106) MG/DL Lactic Acid (0.4-2.0) mmol/L Calcium (8.5-10.1) mg/dL Total Bilirubin (0.2-1.0) mg/dL AST (15-37) U/L ALT (12-78) U/L Alkaline Phosphatase (46-116) U/L Lactate Dehydrogenase (85-227) U/L C-Reactive Protein (0.0-0.3) mg/dL Total Protein (6.4-8.2) g/dL Albumin (3.4-5.0) g/dL Globulin (2.3-3.5) g/dL Albumin/Globulin Ratio (1.2-2.2) Urine Color (YELLOW) Urine Appearance (CLEAR) Urine pH (5.0-8.0) Ur Specific [place] (1.008-1.030) Urine Protein (NEGATIVE) mg/dL Urine Glucose (UA) (NEGATIVE) mg/dL Urine Ketones (NEGATIVE) mg/dL Urine Occult Blood (NEGATIVE) Urine Nitrite (NEGATIVE) Urine Bilirubin (NEGATIVE) Urine Urobilinogen (0.2-1.0) EU/dL Ur Leukocyte Esterase (NEGATIVE) Urine RBC (0-5) Urine WBC (0-5) Ur Epithelial Cells Amorphous Sediment Urine Bacteria Urine Mucus Urine Opiates Screen (NEGATIVE) Ur Oxycodone Screen (NEGATIVE) Urine Methadone Screen (NEGATIVE) Ur Propoxyphene Screen (NEGATIVE) Ur Barbiturates Screen (NEGATIVE) Ur Tricyclics Screen (NEGATIVE) Ur Phencyclidine Scrn (NEGATIVE) Ur Amphetamine Screen (NEGATIVE) U Methamphetamines Scrn (NEGATIVE) Urine MDMA Screen (NEGATIVE) U Benzodiazepines Scrn (NEGATIVE) U Cocaine Metab Screen (NEGATIVE) U Marijuana (THC) Screen (NEGATIVE) SARS-CoV-2 RNA (LYNDSAY) (NEGATIVE) Julio Results Last 24 Hours: Microbiology 04/01/20 00:26 Influenza Type A Antigen Screen - Final Nasal Aspirate, Left NEGATIVE INFLUENZA A VIRUS AG REFERENCE RANGE: NEGATIVE Influenza Type B Antigen Screen - Final NEGATIVE INFLUENZA B VIRUS AG REFERENCE RANGE: NEGATIVE 03/31/20 23:44 Group A Streptococcus Rapid Screen - Final Throat NEGATIVE STREP A SCREEN REFERENCE RANGE: NEGATIVE Med Orders - Current: Current Medications Acetaminophen (Tylenol) 650 mg PO Q4H PRN PRN Reason: Pain (Mild 1-3)/fever Hydrocodone Bitart/Acetaminophen ([place] 325-5 Mg) 2 tab PO Q4H PRN PRN Reason: Pain (moderate 4-6) Last Admin: 04/01/20 12:23 Dose: 2 tab Documented by: Albuterol (Proventil Neb Soln) 2.5 mg NEB Q4H PRN PRN Reason: Shortness Of Breath/wheezing Albuterol/Ipratropium (Duoneb 3.0-0.5 Mg/3 Ml) 3 ml NEB QID PRN PRN Reason: Shortness Of Breath/wheezing Docusate Sodium (Colace) 100 mg PO BID PRN PRN Reason: Constipation Enoxaparin Sodium (Lovenox) 40 mg SUBCUT DAILY [facility] Last Admin: 04/01/20 10:00 Dose: 40 mg Documented by: Sodium Chloride (Normal Saline) 1,000 mls @ 125 mls/hr IV ASDIRECTED [facility] Last Admin: 04/01/20 10:08 Dose: 125 mls/hr Documented by: Ibuprofen (Motrin) 800 mg PO Q6H PRN PRN Reason: Pain (mild 1-3) Ketorolac Tromethamine (Toradol) 30 mg IVPUSH Q6H PRN PRN Reason: Pain (moderate 4-6) Stop: 04/06/20 02:58 Last Admin: 04/01/20 10:04 Dose: 30 mg Documented by: Lorazepam (Ativan) 1 mg IV Q6H PRN PRN Reason: Nausea/Vomiting Morphine Sulfate (Morphine) 2 mg IVPUSH Q2H PRN PRN Reason: Pain (severe 7-10) Ondansetron HCl (Zofran Odt) 8 mg PO Q6H PRN PRN Reason: Nausea able to take PO Trimethoprim/Sulfamethoxazole (Septra Ds) 1 tab PO BID [facility] Last Admin: 04/01/20 10:00 Dose: 1 tab Documented by: Discontinued Medications Acetaminophen (Tylenol) 650 mg PO NOW ONE Stop: 03/31/20 23:45 Last Admin: 04/01/20 00:00 Dose: 650 mg Documented by: Sodium Chloride (Normal Saline) 1,000 mls @ 999 mls/hr IV ASDIRECTED [facility] Last Admin: 04/01/20 00:03 Dose: 999 mls/hr Documented by: Sodium Chloride (Normal Saline) 1,000 mls @ 999 mls/hr IV ASDIRECTED [facility] Sodium Chloride (Normal Saline) 1,000 mls @ 999 mls/hr IV ASDIRECTED [facility] Ketorolac Tromethamine (Toradol) 30 mg IVPUSH ONETIME ONE Stop: 04/01/20 02:22 Last Admin: 04/01/20 02:37 Dose: 30 mg Documented by: Pantoprazole Sodium (Protonix Iv) 40 mg IV ONETIME ONE Stop: 04/01/20 03:00 Last Admin: 04/01/20 03:51 Dose: 40 mg Documented by: - Exam Quality Assessment: No: Supplemental Oxygen General: Alert, Oriented, Cooperative, No Acute Distress Lungs: Normal Respiratory Effort Cardiovascular: Regular Rate, Regular Rhythm GI/Abdominal Exam: Soft, No Distention Psy/Mental Status: Alert, Normal Affect Sepsis Event Note - Evaluation Sepsis Screening Result: No Definite Risk - Focused Exam Vital Signs: Vital Signs Temp Pulse Resp BP Pulse Ox 04/01/20 10:58 36.3 C 56 L 18 103/57 L 97 04/01/20 08:00 37.1 C 57 L 18 105/78 98 04/01/20 02:56 37.2 C 66 20 111/43 L 96 04/01/20 01:09 37.4 C - Problem List Review Problem List Initiated/Reviewed/Updated: Yes - My Orders Last 24 Hours: My Active Orders 04/01/20 16:30 metFORMIN HCl [Metformin HCl ER] 2 tab PO BIDAC 04/02/20 05:00 BASIC METABOLIC PANEL,BMP [CHEM] Timed CBC WITH AUTO DIFF [HEME] Timed - Plan Plan:: ASSESSMENT AND PLAN - Fever -suspect viral syndrome with diffuse symptoms. COVID19 testing was negative. Feels a little better today. Temperature better. Labs unremarkable other than moderate elevation of CRP. No other obvious source of infection. -Continue IV fluid hydration -Symptomatic management -Follow-up cultures Diabetes type 2-sugars controlled so far. -monitor blood glucose before meal and at bedtime -Restart Metformin Groin abscess-currently being treated with Septra -continue Septra DS one po bid MAINTENANCE ISSUES -DVT Prophylaxis Lovenox 40 mg subcut daily -GI prophylaxis- Protonix as above -Bansal catheter not indicated -Nutrition Consistent carb -Nicotine dependence decline patch or gum- reports smokes half a pack per day DISPOSITION anticipate discharge to home after the hospital stay Calvin Grimes MD
[2020-04-01] MEDS: metFORMIN 500 MG Tab PO SCH (16:01)
[2020-04-01] MEDS: Ibuprofen 800 MG Tab PO PRN (16:04)
[2020-04-01] MEDS ORDERED: Simethicone 80 MG Tab.Chew PO PRN (21:46)
[2020-04-02] MEDS: Acetaminophen/HYDROcodone 325-5 MG Tab PO PRN (02:14)
[2020-04-02] MEDS: Sodium Chloride 0.9% 1,000 ML IV SCH (02:15)
[2020-04-02] MEDS: metFORMIN 500 MG Tab PO SCH ×2 (09:03→17:27)
[2020-04-02] MEDS: Enoxaparin 40 MG/0.4 ML Syringe SUBCUT SCH (09:04)
--- NOTE | 2020-04-02 15:28 | PCM.PN ---
- General Info Date of Service: 04/02/20 Subjective Update: No acute events overnight but he did have a fever early this morning. Symptomatically he is feeling better with improvement in his headache and nausea. No complaints of abdominal pain. Muscle aches are better. Labs are normal. Overall he is feeling better. He is wondering if the antibiotic is making him sick since it seems like he gets worse after he takes his dose of Bactrim. Functional Status: Reports: Pain Controlled, Tolerating Diet - Review of Systems General: Reports: Fever Pulmonary: Denies: Shortness of Breath Gastrointestinal: Denies: Abdominal Pain - Patient Data Vitals - Most Recent: Last Vital Signs Temp 37.6 C 04/02/20 08:57 Pulse 77 04/02/20 08:57 Resp 18 04/02/20 08:57 BP 124/60 04/02/20 08:57 Pulse Ox 96 04/02/20 08:57 Weight - Most Recent: 106.3 kg I&O - Last 24 Hours: Intake & Output 04/02/20 04/02/20 04/02/20 06:59 14:59 22:59 Intake Total 1303 870 Balance 1303 870 Lab Results Last 24 Hours: Laboratory Results - last 24 hr 04/01/20 04/01/20 04/02/20 Range/Units 16:21 21:00 04:00 WBC 7.0 (4.5-11.0) K/uL RBC 4.41 (4.30-5.90) M/uL Hgb 12.3 D (12.0-15.0) g/dL Hct 38.1 L (40.0-54.0) % MCV 86 (80-98) fL MCH 28 (27-31) pg MCHC 32 (32-36) % Plt Count 175 (150-400) K/uL Neut % (Auto) 75 H (36-66) % Lymph % (Auto) 15 L (24-44) % [place] % (Auto) 5 (2-6) % Eos % (Auto) 6 H (2-4) % Baso % (Auto) 0 (0-1) % Sodium (140-148) mmol/L Potassium (3.6-5.2) mmol/L Chloride (100-108) mmol/L Carbon Dioxide (21-32) mmol/L Anion Gap (5.0-14.0) mmol/L BUN (7-18) mg/dL Creatinine (0.8-1.3) mg/dL Est Cr Clr Drug Dosing mL/min Estimated GFR (MDRD) (>60) Glucose (74-106) mg/dL POC Glucose 183 H 160 H (74-106) MG/DL Calcium (8.5-10.1) mg/dL 04/02/20 Range/Units 04:00 WBC (4.5-11.0) K/uL RBC (4.30-5.90) M/uL Hgb (12.0-15.0) g/dL Hct (40.0-54.0) % MCV (80-98) fL MCH (27-31) pg MCHC (32-36) % Plt Count (150-400) K/uL Neut % (Auto) (36-66) % Lymph % (Auto) (24-44) % [place] % (Auto) (2-6) % Eos % (Auto) (2-4) % Baso % (Auto) (0-1) % Sodium 135 L (140-148) mmol/L Potassium 3.8 (3.6-5.2) mmol/L Chloride 104 (100-108) mmol/L Carbon Dioxide 24 (21-32) mmol/L Anion Gap 10.8 (5.0-14.0) mmol/L BUN 8 (7-18) mg/dL Creatinine 0.8 (0.8-1.3) mg/dL Est Cr Clr Drug Dosing 125.63 mL/min Estimated GFR (MDRD) > 60 (>60) Glucose 149 H (74-106) mg/dL POC Glucose (74-106) MG/DL Calcium 7.9 L (8.5-10.1) mg/dL Julio Results Last 24 Hours: Microbiology 03/31/20 23:44 Quick Strep Confirmation Culture - Preliminary Throat NO GROUP A STREP ISOLATED REFERENCE RANGE: NEGATIVE Group A Streptococcus Rapid Screen - Final NEGATIVE STREP A SCREEN REFERENCE RANGE: NEGATIVE 03/31/20 22:39 Aerobic Blood Culture - Preliminary Blood - Venous NO GROWTH AFTER 1 DAY Anaerobic Blood Culture - Preliminary NO GROWTH AFTER 1 DAY 03/31/20 23:25 Aerobic Blood Culture - Preliminary Blood - Venous - Lab Draw NO GROWTH AFTER 1 DAY Anaerobic Blood Culture - Preliminary NO GROWTH AFTER 1 DAY Med Orders - Current: Current Medications Acetaminophen (Tylenol) 650 mg PO Q4H PRN PRN Reason: Pain (Mild 1-3)/fever Hydrocodone Bitart/Acetaminophen ([place] 325-5 Mg) 2 tab PO Q4H PRN PRN Reason: Pain (moderate 4-6) Last Admin: 04/02/20 02:14 Dose: 2 tab Documented by: Albuterol (Proventil Neb Soln) 2.5 mg NEB Q4H PRN PRN Reason: Shortness Of Breath/wheezing Albuterol/Ipratropium (Duoneb 3.0-0.5 Mg/3 Ml) 3 ml NEB QID PRN PRN Reason: Shortness Of Breath/wheezing Docusate Sodium (Colace) 100 mg PO BID PRN PRN Reason: Constipation Ibuprofen (Motrin) 800 mg PO Q6H PRN PRN Reason: Pain (mild 1-3) Last Admin: 04/01/20 16:04 Dose: 800 mg Documented by: Ketorolac Tromethamine (Toradol) 30 mg IVPUSH Q6H PRN PRN Reason: Pain (moderate 4-6) Stop: 04/06/20 02:58 Last Admin: 04/01/20 10:04 Dose: 30 mg Documented by: Lorazepam (Ativan) 1 mg IV Q6H PRN PRN Reason: Nausea/Vomiting [facility] Last Admin: 04/02/20 09:03 Dose: 1,000 mg Documented by: Morphine Sulfate (Morphine) 2 mg IVPUSH Q2H PRN PRN Reason: Pain (severe 7-10) Ondansetron HCl (Zofran Odt) 8 mg PO Q6H PRN PRN Reason: Nausea able to take PO Simethicone (Simethicone) 80 mg PO Q4H PRN PRN Reason: Gas Last Admin: 04/01/20 22:07 Dose: 80 mg Documented by: Discontinued Medications Acetaminophen (Tylenol) 650 mg PO NOW ONE Stop: 03/31/20 23:45 Last Admin: 04/01/20 00:00 Dose: 650 mg Documented by: Enoxaparin Sodium (Lovenox) 40 mg SUBCUT DAILY [facility] Last Admin: 04/02/20 09:04 Dose: 40 mg Documented by: Sodium Chloride (Normal Saline) 1,000 mls @ 999 mls/hr IV [facility]RECTED [facility] Last Admin: 04/01/20 00:03 Dose: 999 mls/hr Documented by: Sodium Chloride (Normal Saline) 1,000 mls @ 999 mls/hr [facility] Sodium Chloride (Normal Saline) 1,000 mls @ 999 mls/hr [facility] Sodium Chloride (Normal Saline) 1,000 mls @ 125 mls/hr [facility] Last Admin: 04/02/20 02:15 Dose: 125 mls/hr Documented by: Ketorolac Tromethamine (Toradol) 30 mg IVPUSH ONETIME ONE Stop: 04/01/20 02:22 Last Admin: 04/01/20 02:37 Dose: 30 mg Documented by: Pantoprazole Sodium (Protonix Iv) 40 mg IV ONETIME ONE Stop: 04/01/20 03:00 Last Admin: 04/01/20 03:51 Dose: 40 mg Documented by: Trimethoprim/Sulfamethoxazole (Septra Ds) 1 tab PO BID [facility] Last Admin: 04/01/20 20:31 Dose: 1 tab Documented by: - Exam Quality Assessment: No: Supplemental Oxygen General: Alert, Oriented, Cooperative, No Acute Distress Lungs: Normal Respiratory Effort GI/Abdominal Exam: Soft, No Distention (Male) Exam: Other (condyloma to the left of the base of the penis about 1 cm in diameter ) Extremities: No Pedal Edema Skin: Warm, Dry Psy/Mental Status: Alert, Normal Affect Sepsis Event Note - Evaluation Sepsis Screening Result: No Definite Risk - Focused Exam Vital Signs: Vital Signs Temp Pulse Resp BP Pulse Ox 04/02/20 08:57 37.6 C 77 18 124/60 96 - Problem List Review Problem List Initiated/Reviewed/Updated: Yes - My Orders Last 24 Hours: My Active Orders 04/01/20 16:30 metFORMIN [Glucophage] 1,000 mg PO BIDAC 04/01/20 21:46 Simethicone 80 mg PO Q4H PRN 04/02/20 15:26 Convert IV to Saline Lock [OM.PC] Routine 04/02/20 15:30 Doxycycline [Vibramycin] 100 mg PO Q12H - Plan Plan:: ASSESSMENT AND PLAN - Fever -suspect viral syndrome with diffuse symptoms. COVID19 testing was negative. Could be antibiotic related but this seems a little bit unusual. Groin lesion discussed below. No obvious source for infection. Clinically he is feeling better. -Change antibiotics to doxycycline -Saline lock IV -Symptomatic management -Follow-up cultures Diabetes type 2-sugars controlled so far. -monitor blood glucose before meal and at bedtime -Continue Metformin Suspected large condyloma-lesion lateral to the penis on the left side. Appears to be a condyloma with no impressive evidence for infection at this time but this is possible. -Change antibiotics to doxycycline -Outpatient follow-up with Dr. Oconnell to consider removal Tobacco dependence-encourage cessation MAINTENANCE ISSUES -DVT Prophylaxis encourage ambulation -GI prophylaxis-not indicated -Nutrition Consistent carb -Nicotine dependence decline patch or gum- reports smokes half a pack per day DISPOSITION anticipate discharge to home after the hospital stay, hopefully tomorrow if stable overnight Calvin Grimes MD
[2020-04-02] MEDS: Sulfamethoxazole/Trimethoprim 800-160 MG Tab PO SCH (16:27)
[2020-04-02] MEDS: Doxycycline 100 MG Cap PO SCH (17:27)
[2020-04-03] MEDS: Doxycycline 100 MG Cap PO SCH (04:00)
[2020-04-03 08:20] VITALS: BP 107/68; PULSE 59
[2020-04-03] MEDS: Ibuprofen 800 MG Tab PO PRN (08:24)
[2020-04-03] MEDS: metFORMIN 500 MG Tab PO SCH (08:24)
--- NOTE | 2020-04-03 10:53 | PCM.DCSUM1 ---
Discharge Summary - Hospital Course Brief History: 50-year-old male with history of controlled type 2 diabetes mellitus who presented with fever, headache, diffuse body aches and nausea. He was admitted for observation and further evaluation of fever with no obvious source. Diagnosis: Stroke: No - Discharge Data Discharge Date: 04/03/20 Discharge Disposition: Home, Self-Care 01 Condition: Good - Referral to Home Health Primary Care Physician: Jorge Santana NP - Discharge Diagnosis/Problem(s) (1) Fever SNOMED Code(s): 483030505 ICD Code: R50.9 - FEVER, UNSPECIFIED Status: Suspected Qualifiers: Fever type: drug-induced Qualified Code(s): R50.2 - Drug induced fever (2) Condyloma SNOMED Code(s): 754127970 ICD Code: A63.0 - ANOGENITAL (VENEREAL) WARTS Status: Acute (3) Diabetes mellitus type 2 in obese SNOMED Code(s): 03979859 ICD Code: E11.69 - TYPE 2 DIABETES MELLITUS WITH OTHER SPECIFIED COMPLICATION; E66.9 - OBESITY, UNSPECIFIED Status: Chronic Priority: Low - Patient Summary/Data Hospital Course: Jair presented to the emergency room with fever, headache, diffuse body aches, nausea and fatigue. Work-up in the emergency room was fairly unremarkable. Laboratory studies were normal other than an elevated CRP. There was no obvious evidence for infection. COVID19, influenza and strep were all negative. Given the severity of his symptoms and the fact that he was currently being treated for concern for a groin infection he was admitted to the hospital. Overnight following admission there were no acute issues. He had been managed with IV fluids and his Bactrim was continued. The morning after admission his symptoms were a little bit better. They did flareup later in the morning and again that night. He had several fevers of around 101 degrees. IV fluids were continued. By the second morning after admission he was feeling moderately better but did continue to have some fevers. He was concerned that his fevers and symptoms were all related to the Bactrim since his symptoms seem to get worse after taking the antibiotic. The Bactrim was discontinued and doxycycline started in its place. Reexamination of the lesion in the left groin area raised concern for an inflamed and possibly infected condyloma rather than an abscess. So far all of his STD testing has been negative including HIV and syphilis which were both done at an outside clinic. The plan is for him to be on antibiotics for a few days and then he will be following up in the surgery clinic to consider excision of this large condyloma appearing mass. He is feeling well at the time of discharge. He has not had a fever in more than 24 hours. Symptoms seem to have resolved after stopping the Bactrim. I am going to add the Bactrim to his allergy list because of the severity of his symptoms and no other obvious cause. He has follow-up with both primary care and surgery scheduled. - Patient Instructions Diet: Diabetic Diet Activity: As Tolerated Driving: May Drive Today Showering/Bathing: May Shower Notify Provider of: Fever, Increased Pain Other/Special Instructions: 1. You were in the hospital in the hospital for observation and management of a fever. We performed an extensive work-up and did not find an obvious source of infection other than possibly a mild infection surrounding the lesion in your left groin. I am suspicious this is a type of ge nital wart. It is too large for medications to be effective and I recommend that this lesion be evaluated by a surgeon for excision. We do have an appointment scheduled on April 12. I recommend that you complete a short course of antibiotics in case there is surrounding inflammation or infection. I suspect that most of your symptoms that were present when you were admitted to the hospital were related to an adverse reaction to the Bactrim. I do recommend that we add Bactrim to your allergy list. 2. Continue your other home medications as previously prescribed. 3. Follow-up as scheduled with Dr. Oconnell and Jorge Santana on April 12. - Discharge Plan *PRESCRIPTION DRUG MONITORING PROGRAM REVIEWED*: Not Applicable *COPY OF PRESCRIPTION DRUG MONITORING REPORT IN PATIENT JULIA: Not Applicable Prescriptions/Med Rec: Doxycycline [Vibramycin] 100 mg PO Q12H #9 cap Home Medications: Home Meds metFORMIN HCl [Metformin HCl ER] 2 tab PO BID 01/02/18 [History] SUMAtriptan [Imitrex] 1 - 2 tab PO ASDIRECTED PRN 03/19/19 [History] Sulfamethoxazole/Trimethoprim [Sulfamethoxazole-Tmp Ds Tablet] 1 tab PO BID 03/31/20 [History] Doxycycline [Vibramycin] 100 mg PO Q12H #9 cap 04/03/20 [Rx] Oxygen Therapy Mode: Room Air Patient Handouts: Doxycycline tablets or capsules Referrals: Jorge Santana NP [Primary Care Provider] - 04/12/20 11:20 am (Please arrive 15 minutes early to register for your appointment.) Neftali Oconnell MD [Physician] - 04/12/20 1:40 pm - Discharge Summary/Plan Comment DC Time >30 min.: No - Patient Data Vitals - Most Recent: Last Vital Signs Temp 36.1 C 04/03/20 08:17 Pulse 59 L 04/03/20 08:17 Resp 18 04/03/20 08:17 BP 107/68 04/03/20 08:17 Pulse Ox 96 04/03/20 08:17 Weight - Most Recent: 106.3 kg I&O - Last 24 hours: Intake & Output 04/02/20 04/03/20 04/03/20 22:59 06:59 14:59 Intake Total 450 360 Balance 450 360 JUDY Results - Last 24 hrs: Microbiology 03/31/20 23:44 Quick Strep Confirmation Culture - Final Throat NO GROUP A STREP ISOLATED REFERENCE RANGE: NEGATIVE Group A Streptococcus Rapid Screen - Final NEGATIVE STREP A SCREEN REFERENCE RANGE: NEGATIVE 03/31/20 22:39 Aerobic Blood Culture - Preliminary Blood - Venous NO GROWTH AFTER 2 DAYS Anaerobic Blood Culture - Preliminary NO GROWTH AFTER 2 DAYS 03/31/20 23:25 Aerobic Blood Culture - Preliminary Blood - Venous - Lab Draw NO GROWTH AFTER 2 DAYS Anaerobic Blood Culture - Preliminary NO GROWTH AFTER 2 DAYS Med Orders - Current: Current Medications Acetaminophen (Tylenol) 650 mg PO Q4H PRN PRN Reason: Pain (Mild 1-3)/fever Last Admin: 04/02/20 22:27 Dose: 650 mg Documented by: Hydrocodone Bitart/Acetaminophen ([place] 325-5 Mg) 2 tab PO Q4H PRN PRN Reason: Pain (moderate 4-6) Last Admin: 04/02/20 02:14 Dose: 2 tab Documented by: Albuterol (Proventil Neb Soln) 2.5 mg NEB Q4H PRN PRN Reason: Shortness Of Breath/wheezing Albuterol/Ipratropium (Duoneb 3.0-0.5 Mg/3 Ml) 3 ml NEB QID PRN PRN Reason: Shortness Of Breath/wheezing Docusate Sodium (Colace) 100 mg PO BID PRN PRN Reason: Constipation Last Admin: 04/03/20 08:30 Dose: 100 mg Documented by: Doxycycline Hyclate (Vibramycin) 100 mg PO Q12H [facility] Last Admin: 04/03/20 04:00 Dose: 100 mg Documented by: Ibuprofen (Motrin) 800 mg PO Q6H PRN PRN Reason: Pain (mild 1-3) Last Admin: 04/03/20 08:24 Dose: 800 mg Documented by: Ketorolac Tromethamine (Toradol) 30 mg IVPUSH Q6H PRN PRN Reason: Pain (moderate 4-6) Stop: 04/06/20 02:58 Last Admin: 04/01/20 10:04 Dose: 30 mg Documented by: Lorazepam (Ativan) 1 mg IV Q6H PRN PRN Reason: Nausea/Vomiting Metformin HCl (Glucophage) 1,000 mg PO BIDAC [facility] Last Admin: 04/03/20 08:24 Dose: 1,000 mg Documented by: Morphine Sulfate (Morphine) 2 mg IVPUSH Q2H PRN PRN Reason: Pain (severe 7-10) Ondansetron HCl (Zofran Odt) 8 mg PO Q6H PRN PRN Reason: Nausea able to take PO Simethicone (Simethicone) 80 mg PO Q4H PRN PRN Reason: Gas Last Admin: 04/01/20 22:07 Dose: 80 mg Documented by: Discontinued Medications Acetaminophen (Tylenol) 650 mg PO NOW ONE Stop: 03/31/20 23:45 Last Admin: 04/01/20 00:00 Dose: 650 mg Documented by: Enoxaparin Sodium (Lovenox) 40 mg SUBCUT DAILY [facility] Last Admin: 04/02/20 09:04 Dose: 40 mg Documented by: Sodium Chloride (Normal Saline) 1,000 mls @ 999 mls/hr IV ASDIRECTED [facility] Last Admin: 04/01/20 00:03 Dose: 999 mls/hr Documented by: Sodium Chloride (Normal Saline) 1,000 mls @ 999 mls/hr IV ASDIRECTED [facility] Sodium Chloride (Normal Saline) 1,000 mls @ 999 mls/hr IV ASDIRECTED [facility] Sodium Chloride (Normal Saline) 1,000 mls @ 125 mls/hr IV ASDIRECTED [facility] Last Admin: 04/02/20 02:15 Dose: 125 mls/hr Documented by: Ketorolac Tromethamine (Toradol) 30 mg IVPUSH ONETIME ONE Stop: 04/01/20 02:22 Last Admin: 04/01/20 02:37 Dose: 30 mg Documented by: Pantoprazole Sodium (Protonix Iv) 40 mg IV ONETIME ONE Stop: 04/01/20 03:00 Last Admin: 04/01/20 03:51 Dose: 40 mg Documented by: Trimethoprim/Sulfamethoxazole (Septra Ds) 1 tab PO BID [facility] Last Admin: 04/02/20 16:27 Dose: Not Given Documented by:
[2020-04-05 07:08] LABS: LYME IGG/IGM AB <0.91 ISR (0.00-0.90)
[2020-04-05 14:08] LABS: HGE IGG TITER Negative (Neg:<1:64); HGE IGM TITER Negative (Neg:<1:20)
== END 2020-04-03 12:15 | disposition home or self-care (01) ==
LOC: JP.ED 22:18 → JP.MS 04-01 02:23
PROVIDERS: ADMIT Internal Medicine; ATTEND Internal Medicine
DX: R50.9 Fever, unspecified (principal); E86.0 Dehydration; A63.0 Anogenital (venereal) warts; E11.69 Type 2 diabetes mellitus with other specified complication; F32.9 Major depressive disorder, single episode, unspecified; E66.9 Obesity, unspecified; F17.210 Nicotine dependence, cigarettes, uncomplicated; Z20.828 Contact with and (suspected) exposure to other viral communicable diseases; Z79.84 Long term (current) use of oral hypoglycemic drugs; Z79.899 Other long term (current) drug therapy; Z68.30 Body mass index [BMI] 30.0-30.9, adult
CPT/HCPCS: 36415; 71045; 80048; 80053; 80305; 81001; 82962; 83605; 83615; 85025; 86140; 86618; 86666; 87040; 87081; 87635; 87804; 87880; 96361; 96372; 96374; 96375; 96376; 99284; A9270; C9113; G0378; J1650; J1885; J7030; U0002

== ENCOUNTER 2020-04-19 08:56 | Day surgery (SDC) | payer SELFPAY ==
[~2020-04-19 08:56] MED LIST: Bupivacaine 0.5% 50 ML MDV ONE; Lidocaine 1% with EPINEPHrine 1:100,000 50 ML MDV ONE
[2020-04-19] MEDS ORDERED: ceFAZolin 2 GM in Premix Bag 1 BAG IV ONE (10:00)
[2020-04-19] MEDS ORDERED: Sodium Chloride 0.9% 1,000 ML IV SCH (10:00)
[2020-04-19] MEDS ORDERED: Midazolam 1 MG/ML 2 ML SDV ONE (11:12)
[2020-04-19] MEDS ORDERED: fentaNYL 100 MCG/2 ML SDV ONE ×2 (11:12→12:19)
[2020-04-19] MEDS ORDERED: Propofol 200 MG/20 ML SDV ONE ×2 (11:12→11:14)
[2020-04-19] MEDS ORDERED: Bupivacaine 0.5% 50 ML MDV ONE (11:28)
[2020-04-19] MEDS ORDERED: Bacitracin Oint 1 GM U/D Packet ONE (11:57)
[2020-04-19] MEDS ORDERED: Acetaminophen/HYDROcodone 325-5 MG Tab PO ONE (13:06)
[2020-04-19 14:26] VITALS: BP 110/67; PULSE 117
--- NOTE | 2020-04-19 16:47 | OR ---
DATE OF PROCEDURE: 04/19/2020 SURGEON: Neftali Oconnell MD PROCEDURES: 1. Excision of left naris lesion, 5 mm, in diameter, margin zero. 2. Left inferior naris lesion, 5 mm, in diameter, margin zero. 3. Excision of left groin lesion 1.1 x 2.2 cm, margin 3 mm, full thickness. COMPLICATION: None. SENIOR SOUS CHEF: None. ANESTHESIA: MAC. PREOPERATIVE DIAGNOSIS: Concerning skin lesions. POSTOPERATIVE DIAGNOSIS: Concerning skin lesions. RISKS: Risks, benefits, alternatives, and limitations including, but not limited to infection, bleeding, and false positives and false negatives were explained to the patient who wished to proceed. PROCEDURE IN DETAIL: The patient was placed in supine position. The 2 inferior and superior left nares lesions were anesthetized with lidocaine. A 5 mm punch was reused to excise these and they were closed with 5-0 Prolene suture. The left groin lesion was then excised in an elliptical type fashion. This was carried down with electrocautery and then removed. The purpose of bringing the patient to the operating room was the use of suction to remove the smoke as this was a potential infectious disease/STD. This was then closed with 3-0 Vicryl and 4-0 prolene in interrupted running fashion. Dressings were applied. The patient tolerated the procedure well. Neftali Oconnell MD /[id number]
== END 2020-04-19 14:29 | disposition home or self-care (01) ==
LOC: JP.SDS 08:56
PROVIDERS: ATTEND Surgery
DX: L72.3 Sebaceous cyst (principal); D22.39 Melanocytic nevi of other parts of face; L72.8 Other follicular cysts of the skin and subcutaneous tissue
CPT/HCPCS: 11423; 11440; A9270; J2250; J2704; J3010; J3490; J7030; 88305

== ENCOUNTER 2020-04-29 23:39 | Emergency (ER) | payer SELFPAY ==
[2020-04-29 23:58] VITALS: BP 144/86; PULSE 70
--- NOTE | 2020-04-30 00:09 | EDM.PDOC ---
ED HPI GENERAL MEDICAL PROBLEM - General Chief Complaint: Laceration Stated Complaint: POST OP WOUND Time Seen by Provider: 04/30/20 00:08 Source of Information: Reports: Patient, Old Records, RN History Limitations: Reports: No Limitations - History of Present Illness INITIAL COMMENTS - FREE TEXT/NARRATIVE: 50 yo male here after stitches were removed in the clinic today from his L groin after a biopsy was obtained from that site a week ago. Tonight that wound opened up so came to the ER. Onset: Today Onset Date: 04/29/20 Duration: Minutes: Location: Reports: Other (L groin) Quality: Reports: Dull Severity: Mild Improves with: Reports: None Worsens with: Reports: None Context: Reports: Other (See HPI) Associated Symptoms: Reports: No Other Symptoms Treatments [employer]: Reports: Other (see below) (none) - Related Data Allergies Allergy/AdvReac Type Severity Reaction Status Date / Time sulfamethoxazole AdvReac Nausea and Verified 04/29/20 23:58 [From Bactrim] Vomiting trimethoprim [From Bactrim] AdvReac Nausea and Verified 04/29/20 23:58 Vomiting Home Meds: Home Meds metFORMIN HCl [Metformin HCl ER] 1,000 mg PO BID 01/02/18 [History] atorvaSTATin [Lipitor] 40 mg PO BEDTIME 04/16/20 [History] glipiZIDE [Glipizide ER] 5 mg PO QAM 04/16/20 [History] Past Medical History HEENT History: Reports: Allergic Rhinitis, Impaired Vision Genitourinary History: Reports: Renal Calculus Musculoskeletal History: Reports: None Neurological History: Reports: Migraines Psychiatric History: Reports: ADD, Depression, Suicidal Ideation Endocrine/Metabolic History: Reports: Diabetes, Type II, Obesity/BMI 30+ Dermatologic History: Reports: Eczema - Infectious Disease History Infectious Disease History: Reports: Chicken Pox, Measles - Past Surgical History HEENT Surgical History: Reports: Naso-Sinus Surgery Male Surgical History: Reports: None Endocrine Surgical History: Reports: None Neurological Surgical History: Reports: None Musculoskeletal Surgical History: Reports: Other (See Below) Other Musculoskeletal Surgeries/Procedures:: SKIN GRAFT, left foot surgery after accident which lead to skin graft Dermatological Surgical History: Reports: None Social & Family History - Family History Family Medical History: Noncontributory - Caffeine Use Caffeine Use: Reports: Coffee Other Caffeine Use: 2 cups per day - Living Situation & Occupation Living situation: Reports: with Significant Other, with Family (lives with S.O. and 3 children- all healthy.) ED ROS GENERAL - Review of Systems Review Of Systems: See Below Constitutional: Reports: No Symptoms Skin: Reports: Other (wound dehiscence L groin) Neurological: Reports: No Symptoms ED EXAM, SKIN/RASH Exam: See Below Exam Limited By: No Limitations General Appearance: Alert, WD/WN, No Apparent Distress Skin: Warm, Normal Color, No Rash, Wound/Incision (surgical wound now open L groin, area not red, no drainage. ). No: Erythema Location, Skin: Groin (left) Associated features: No: Warmth, Tenderness, Swelling, Induration, Lymphangitis Course - Vital Signs Last Recorded V/S: Last Vital Signs Temp 36.9 C 04/29/20 23:56 Pulse 70 04/29/20 23:56 Resp 16 04/29/20 23:56 BP 144/86 H 04/29/20 23:56 Pulse Ox 96 04/29/20 23:56 Departure - Departure Time of Disposition: 00:14 Disposition: Home, Self-Care 01 Condition: Good Clinical Impression: Wound dehiscence - Discharge Information *PRESCRIPTION DRUG MONITORING PROGRAM REVIEWED*: No *COPY OF PRESCRIPTION DRUG MONITORING REPORT IN PATIENT JULIA: No Referrals: Jorge Santana NP [Primary Care Provider] - Forms: ED Department Discharge Additional Instructions: Clean area twice daily with a mild soap and water. Dry. Apply a thin layer of Bacitracin. Use acetaminophen for pain relief. Watch for and report redness or increased warmth of area. Sepsis Event Note (ED) - Evaluation Sepsis Screening Result: No Definite Risk - Focused Exam Vital Signs: Vital Signs Temp Pulse Resp BP Pulse Ox 04/29/20 23:56 36.9 C 70 16 144/86 H 96
== END 2020-04-30 00:24 | disposition home or self-care (01) ==
LOC: JP.ED 23:39
DX: T81.30XA Disruption of wound, unspecified, initial encounter (principal); E11.9 Type 2 diabetes mellitus without complications; E66.9 Obesity, unspecified; Z88.2 Allergy status to sulfonamides; Z79.899 Other long term (current) drug therapy; Z79.84 Long term (current) use of oral hypoglycemic drugs; Z68.31 Body mass index [BMI] 31.0-31.9, adult
CPT/HCPCS: 99283

== ENCOUNTER 2021-01-29 10:27 | Emergency (ER) | payer MEDICAID, OTHER ==
--- NOTE | 2021-01-29 10:51 | EDM.PDOC ---
ED HPI GENERAL MEDICAL PROBLEM - General Chief Complaint: ENT Problem Stated Complaint: RIGHT EAR PAIN Time Seen by Provider: 01/29/21 10:47 Source of Information: Reports: Patient, RN Notes Reviewed History Limitations: Reports: No Limitations - History of Present Illness INITIAL COMMENTS - FREE TEXT/NARRATIVE: 50-year-old gentleman presents emergency department day complaint of right ear pain, he states it started last night difficulty for him to get back to sleep he said no fevers no sore throat no nausea vomiting - Related Data Allergies Allergy/AdvReac Type Severity Reaction Status Date / Time sulfamethoxazole AdvReac Nausea and Verified 01/29/21 10:42 [From Bactrim] Vomiting trimethoprim [From Bactrim] AdvReac Nausea and Verified 01/29/21 10:42 Vomiting Home Meds: Home Meds metFORMIN HCl [Metformin HCl ER] 1,000 mg PO BID 01/02/18 [History] Past Medical History HEENT History: Reports: Allergic Rhinitis, Impaired Vision Cardiovascular History: Reports: High Cholesterol Genitourinary History: Reports: Renal Calculus Musculoskeletal History: Reports: None Neurological History: Reports: Migraines Psychiatric History: Reports: ADD, Depression, Suicidal Ideation Endocrine/Metabolic History: Reports: Diabetes, Type II, Obesity/BMI 30+ Dermatologic History: Reports: Eczema - Infectious Disease History Infectious Disease History: Reports: Chicken Pox, Measles - Past Surgical History HEENT Surgical History: Reports: Naso-Sinus Surgery Male Surgical History: Reports: None Endocrine Surgical History: Reports: None Neurological Surgical History: Reports: None Musculoskeletal Surgical History: Reports: Other (See Below) Other Musculoskeletal Surgeries/Procedures:: SKIN GRAFT, left foot surgery after accident which lead to skin graft Dermatological Surgical History: Reports: None Social & Family History - Family History Family Medical History: No Pertinent Family History - Tobacco Use Tobacco Use Status *Q: Current Every Day Tobacco User Years of Tobacco use: 20 Packs/Tins Daily: 0.2 - Caffeine Use Caffeine Use: Reports: Coffee Other Caffeine Use: 2 cups per day - Recreational Drug Use Recreational Drug Use: No - Living Situation & Occupation Living situation: Reports: with Significant Other, with Family (lives with S.O. and 3 children- all healthy.) ED ROS ENT - Review of Systems Review Of Systems: See Below Constitutional: Reports: No Symptoms HEENT: Reports: Ear Pain. Denies: Ear Discharge ED EXAM, ENT - Physical Exam Exam: See Below Text/Narrative:: Examination of the left ear tympanic membrane is clear and ritchie examination of the right ear it is impacted by cerumen cannot visualize the membrane Course - Vital Signs Last Recorded V/S: Last Vital Signs Temp 97.6 F 01/29/21 10:46 Pulse 69 01/29/21 10:46 Resp 18 01/29/21 10:46 BP 136/80 01/29/21 10:46 Pulse Ox 96 01/29/21 10:46 Departure - Departure Time of Disposition: 11:08 Disposition: Home, Self-Care 01 Condition: Fair Clinical Impression: Cerumen impaction Qualifiers: Laterality: right Qualified Code(s): H61.21 - Impacted cerumen, right ear - Discharge Information Instructions: Earwax Buildup, Adult Referrals: Jorge Santana, METER MAINTENANCE PERSON [Primary Care Provider] - Forms: ED Department Discharge Additional Instructions: f/u as needed Sepsis Event Note (ED) - Evaluation Sepsis Screening Result: No Definite Risk - Focused Exam Vital Signs: Vital Signs Temp Pulse Resp BP Pulse Ox 01/29/21 10:46 97.6 F 69 18 136/80 96 01/29/21 10:44 97.6 F 69 18 136/80 96 - Assessment/Plan Plan: assesment: cerumen impaction
[2021-01-29 11:11] VITALS: BP 136/80; PULSE 69
== END 2021-01-29 11:17 | disposition home or self-care (01) ==
LOC: JP.ED 10:27
DX: H61.21 Impacted cerumen, right ear (principal); E11.9 Type 2 diabetes mellitus without complications; E66.9 Obesity, unspecified; Z68.34 Body mass index [BMI] 34.0-34.9, adult; Z79.84 Long term (current) use of oral hypoglycemic drugs; Z88.1 Allergy status to other antibiotic agents; Z72.0 Tobacco use
CPT/HCPCS: 99282

== ENCOUNTER 2021-04-12 16:32 | Emergency (ER) | payer SELFPAY ==
[2021-04-12 17:00] VITALS: BP 130/73; PULSE 77
--- NOTE | 2021-04-12 19:01 | EDM.PDOC ---
ED HPI GENERAL MEDICAL PROBLEM - General Chief Complaint: Respiratory Problem Stated Complaint: COUGH, CHEST PAINS Time Seen by Provider: 04/12/21 18:15 Source of Information: Reports: Patient History Limitations: Reports: No Limitations - History of Present Illness INITIAL COMMENTS - FREE TEXT/NARRATIVE: 51-year-old male with a cough for the past 7 days, over the past 2 days has developed right-sided ear pain and tonight he was cleaning with some strong chemicals and had a coughing spell that was very intense, he felt lightheaded and diaphoretic and felt he needed to be checked out. He just has not felt well for the past week. He is not Covid vaccinated. No nausea or vomiting, low- grade fevers possibly, no diarrhea. Onset: Gradual Duration: Day(s): (7 days of symptoms) Worsens with: Reports: Other (Activity causes increased shortness of breath and coughing) Headache Pain Score (Numeric/FACES): 6 - Related Data Allergies Allergy/AdvReac Type Severity Reaction Status Date / Time sulfamethoxazole AdvReac Nausea and Verified 04/12/21 17:10 [From Bactrim] Vomiting trimethoprim [From Bactrim] AdvReac Nausea and Verified 04/12/21 17:10 Vomiting Home Meds: Home Meds metFORMIN HCl [Metformin HCl ER] 1,000 mg PO BID 01/02/18 [History] Past Medical History HEENT History: Reports: Allergic Rhinitis, Impaired Vision Cardiovascular History: Reports: High Cholesterol Genitourinary History: Reports: Renal Calculus Musculoskeletal History: Reports: None Neurological History: Reports: Migraines Psychiatric History: Reports: ADD, Depression, Suicidal Ideation Endocrine/Metabolic History: Reports: Diabetes, Type II, Obesity/BMI 30+ Dermatologic History: Reports: Eczema - Infectious Disease History Infectious Disease History: Reports: Chicken Pox, Measles - Past Surgical History HEENT Surgical History: Reports: Naso-Sinus Surgery Male Surgical History: Reports: None Endocrine Surgical History: Reports: None Neurological Surgical History: Reports: None Musculoskeletal Surgical History: Reports: Other (See Below) Other Musculoskeletal Surgeries/Procedures:: SKIN GRAFT, left foot surgery after accident which lead to skin graft Dermatological Surgical History: Reports: None Social & Family History - Family History Family Medical History: No Pertinent Family History - Tobacco Use Tobacco Use Status *Q: Heavy Tobacco User Years of Tobacco use: 0 Packs/Tins Daily: 0 - Caffeine Use Caffeine Use: Reports: Coffee Other Caffeine Use: 2 cups per day - Recreational Drug Use Recreational Drug Use: No - Living Situation & Occupation Living situation: Reports: with Significant Other, with Family (lives with S.O. and 3 children- all healthy.) ED ROS GENERAL - Review of Systems Review Of Systems: See Below Constitutional: Reports: Chills, Malaise HEENT: Reports: Ear Pain (Right-sided ear pain) Respiratory: Reports: Shortness of Breath, Cough Cardiovascular: Reports: Chest Pain (Chest hurts when coughing) GI/Abdominal: Reports: No Symptoms Skin: Reports: Pallor Neurological: Reports: Dizziness Psychiatric: Reports: No Symptoms ED EXAM, GENERAL - Physical Exam Exam: See Below Exam Limited By: No Limitations General Appearance: Alert, No Apparent Distress Eye Exam: Bilateral Eye: Normal Inspection Ears: Other (Right tympanic membrane is erythematous and somewhat distorted, the left is normal. No pain with movement of the ear helix) Nose: Normal Inspection Head: Atraumatic Neck: No: Lymphadenopathy (R), Lymphadenopathy (L) Respiratory/Chest: Wheezing (Patient has diffuse mild expiratory wheezes, especially when coughing) Neurological: Alert, Oriented Psychiatric: Normal Affect, Normal Mood Skin Exam: Warm, Dry Course - Vital Signs Last Recorded V/S: Last Vital Signs Temp 96.7 F L 04/12/21 17:10 Pulse 77 04/12/21 17:10 Resp 16 04/12/21 17:10 BP 130/73 04/12/21 17:10 Pulse Ox 93 L 04/12/21 17:10 - Orders/Labs/Meds Labs: Laboratory Tests 04/12/21 Range/Units 17:15 SARS-CoV-2 RNA (LYNDSAY) Negative (NEGATIVE) - Re-Assessments/Exams Free Text/Narrative Re-Assessment/Exam: 04/12/21 19:00 Covid was tested and fortunately was negative. Patient will be placed on Zithromax for his right otitis and possible atypical bronchitis, and also given an albuterol inhaler. He was written a note to be off work for the next 3 days and should recheck after those 3 days if not improving satisfactorily. Departure - Departure Time of Disposition: 19:02 Disposition: Home, Self-Care 01 Clinical Impression: Bronchitis Right otitis media Qualifiers: Otitis media type: suppurative Chronicity: acute Recurrence: non-recurrent Spontaneous tympanic membrane rupture: without spontaneous rupture Qualified Code(s): H66.001 - Acute suppurative otitis media without spontaneous rupture of ear drum, right ear - Discharge Information Instructions: Acute Bronchitis, Adult, [id number] Referrals: Jorge Santana LOCATOR SPECIALIST [Primary Care Provider] - Forms: ED Department Discharge Care Plan Goals: Use inhaler every few hours to help with breathing, and take antibiotic as prescribed starting tonight. Rest and fluids of the next 2 days then increase activity as tolerated, if you are too ill to start work on Sunday consider recheck at that time. Sepsis Event Note (ED) - Evaluation Sepsis Screening Result: No Definite Risk - Focused Exam Vital Signs: Vital Signs Temp Pulse Resp BP Pulse Ox 04/12/21 17:10 96.7 F L 77 16 130/73 93 L 04/12/21 16:58 96.7 F L 77 16 130/73 93 L
== END 2021-04-12 19:08 | disposition home or self-care (01) ==
LOC: JP.ED 16:32
DX: H66.001 Acute suppurative otitis media without spontaneous rupture of ear drum, right ear (principal); J40 Bronchitis, not specified as acute or chronic; Z20.822 Contact with and (suspected) exposure to COVID-19; E11.9 Type 2 diabetes mellitus without complications; E66.9 Obesity, unspecified; Z72.0 Tobacco use; Z88.2 Allergy status to sulfonamides; Z79.84 Long term (current) use of oral hypoglycemic drugs; Z68.33 Body mass index [BMI] 33.0-33.9, adult
CPT/HCPCS: 99283; U0002

== ENCOUNTER 2022-12-31 11:14 | Emergency (ER) | payer MEDICAID, OTHER ==
[2022-12-31] MEDS ORDERED: Sodium Chloride 0.9% 1,000 ML IV ONE (12:20)
[2022-12-31] MEDS ORDERED: diphenhydrAMINE 50 MG/ML SDV IVPUSH ONE (12:21)
[2022-12-31] MEDS ORDERED: Ketorolac 30 MG/ML SDV IVPUSH ONE (12:21)
[2022-12-31] MEDS ORDERED: Prochlorperazine 10 MG/2 ML SDV IVPUSH ONE (12:21)
[2022-12-31 14:14] VITALS: BP 117/69; PULSE 67
== END 2022-12-31 14:10 | disposition home or self-care (01) ==
LOC: JP.ED 11:14
DX: G43.909 Migraine, unspecified, not intractable, without status migrainosus (principal); E11.9 Type 2 diabetes mellitus without complications; E66.9 Obesity, unspecified; Z68.35 Body mass index [BMI] 35.0-35.9, adult; Z88.1 Allergy status to other antibiotic agents; Z79.84 Long term (current) use of oral hypoglycemic drugs; Z87.891 Personal history of nicotine dependence
CPT/HCPCS: 96361; 96374; 96375; 99283; J0780; J1200; J1885; J7030

== ENCOUNTER 2023-04-07 20:14 | Emergency (ER) | payer OTHER, MEDICAID ==
[2023-04-07 20:27] VITALS: BP 118/72; PULSE 86
[2023-04-07] MEDS ORDERED: Bacitracin Oint 1 GM U/D Packet TOP ONE (20:58)
[2023-04-07] MEDS ORDERED: Lidocaine 1% with EPINEPHrine 1:100,000 50 ML MDV INJECT ONE (20:59)
[2023-04-07] MEDS ORDERED: Diphtheria,Pertussis(Acell),Tetanus Vaccine 0.5 ML Syringe IM ONE (21:25)
== END 2023-04-07 22:20 | disposition home or self-care (01) ==
LOC: JP.ED 20:14
DX: S61.216A Laceration without foreign body of right little finger without damage to nail, initial encounter (principal); E11.9 Type 2 diabetes mellitus without complications; E66.9 Obesity, unspecified; Z87.891 Personal history of nicotine dependence; Z88.2 Allergy status to sulfonamides; Z88.8 Allergy status to other drugs, medicaments and biological substances; Z68.34 Body mass index [BMI] 34.0-34.9, adult; W26.8XXA Contact with other sharp object(s), not elsewhere classified, initial encounter
CPT/HCPCS: 12001; 90471; 90715; 99282; 99282-25

== ENCOUNTER 2023-08-19 18:29 | Emergency (ER) | payer MEDICAID ==
[2023-08-19 18:59] VITALS: BP 124/82; PULSE 86
[2023-08-19] MEDS: HYDROmorphone 1 MG/ML Syringe IM ONE (19:13)
[2023-08-19] MEDS: Hydrocortisone 1% Crm 30 GM Tube TOP PRN (19:14)
== END 2023-08-19 19:35 | disposition home or self-care (01) ==
LOC: JP.ED 18:29
DX: N47.7 Other inflammatory diseases of prepuce (principal); E11.9 Type 2 diabetes mellitus without complications; E78.00 Pure hypercholesterolemia, unspecified; Z87.891 Personal history of nicotine dependence; Z88.2 Allergy status to sulfonamides
CPT/HCPCS: 96372; 99283; A9270; J1170